=== PATIENT | male | born 1985 | race Hispanic/Latino ===

== ENCOUNTER 2019-05-20 11:43 | Inpatient (IN) | payer SELFPAY ==
[~2019-05-20] VITALS: Ht 165.1 cm; Wt 68.2 kg
[2019-05-20] MEDS ORDERED: IBUPROFEN 600 MG TAB PO STA (11:57)
[2019-05-20] MEDS ORDERED: AZITHROMYCIN 250 MG TAB PO ONE (12:00)
[2019-05-20] MEDS ORDERED: CEFTRIAXONE SOD 1 GM VIAL IM ONE (12:00)
[2019-05-20] MEDS ORDERED: OSELTAMIVIR PHOSPHATE 75 MG CAP PO ONE (12:00)
[2019-05-20 12:48] LABS: STREPTOCOCCUS GRP A ANTIGEN POSITIVE (NEGATIVE)
[2019-05-20 12:54] LABS: INFLUENZAE A&B ANTIGEN (RAPID) NEGATIVE (NEGATIVE)
--- NOTE | 2019-05-20 13:17 | Diagnostic Imaging Report ---
EXAMINATION: CHEST 2 VIEWS INDICATION: Chest pain, shortness of breath COMPARISON: None FINDINGS: LINES/TUBES:None LUNGS:The lungs are well-inflated. There is a 6.5 x 5.5 cm consolidation at the lateral left midlung zone with internal lucent component. PLEURA:No pleural effusion or pneumothorax. MEDIASTINUM:The cardiomediastinal silhouette appears normal in size and shape. BONES/SOFT TISSUES:No acute osseous injury. ABDOMEN:No free air under the diaphragm. IMPRESSION: Left midlung zone 6.5 x 5.5 cm consolidation with internal lucency for which the differential includes pneumonia or a cavitary mass lesion. RECOMMENDATION: Chest CT for further evaluation. Signed by: Ramu Moseley MD on 05/20/2019 1:13 PM
[2019-05-20] MEDS ORDERED: MORPHINE SULFATE INJ 4 MG/ML INJ 1ML IV STA (13:54)
[2019-05-20] MEDS ORDERED: IPRATROPIUM BROMIDE 0.02% 2.5 ML NEB NEB STA (13:54)
[2019-05-20] MEDS ORDERED: SODIUM CHLORIDE 0.9% 1000ML 1,000 ML IV STA (13:54)
[2019-05-20] MEDS ORDERED: SODIUM CHLORIDE 0.9% 100 ML IV STA (13:54)
[2019-05-20] MEDS ORDERED: ACETAMINOPHEN 325 MG TAB PO STA (13:54)
[2019-05-20] MEDS ORDERED: ALBUTEROL SULF 0.083% NEB SOLN 3 ML NEB NEB STA (13:54)
[2019-05-20] MEDS ORDERED: ONDANSETRON HCL INJ 2MG/ML 2ML 2 MG/ML VIAL IV STA (13:54)
[2019-05-20] MEDS ORDERED: PIPER-TAZ 3.375 GM 50 ML IV ONE (14:15)
[2019-05-20] MEDS ORDERED: LEVOFLOXACIN 750MG/D5W 150ML IV SCH (14:15)
[2019-05-20] MEDS ORDERED: LEVOFLOXACIN 750MG/D5W 150ML 150 ML IV ONE (14:45)
--- OUTSIDE RECORDS SUMMARY | 2019-05-20 14:59 | XMS REPORT ---
[facility] Address Unknown Phone Unavailable Care Team Providers Care Ged Teacher Name Role Phone CHAMP COULTER Unavailable Unavailable Problems This patient has no known problems. Allergies, Adverse Reactions, Alerts This patient has no known allergies or adverse reactions. Medications This patient has no known medications. Results Test Description Test Time Test Comments Text Results Atomic Results Result Comments CHEST 2 VIEWS 2019-05-20 13:11:00 [place] [id number] Patient Name: VANDA ALTAMIRANO MR #: [id number] : 1985 Age/Sex: 34/M Req #: [id number] Adm Physician: Ordered by: CHAMP COULTER MD, MD Report #: [id number] Location: ER Room/Bed: Procedure: [id number] DX/CHEST 2 VIEWS Exam Date: Exam Time: REPORT STATUS: Signed EXAMINATION: CHEST 2 VIEWS INDICATION: Chest pain, shortness of breath COMPARISON: None FINDINGS: LINES/TUBES:None LUNGS:The lungs are well-inflated. There is a 6.5 x 5.5 cm consolidation at the lateral left midlung zone with internal lucent component. PLEURA:No pleural effusion or pneumothorax. MEDIASTINUM:The cardiomediastinal silhouette appears normal in size and shape. BONES/SOFT TISSUES:No acute osseous injury. ABDOMEN:No free air under the diaphragm. IMPRESSION: Left midlung zone 6.5 x 5.5 cm consolidation with internal lucency for which the differential includes pneumonia or a cavitary mass lesion. RECOMMENDATION: Chest CT for further evaluation. Signed by: Indy Moseley MD on 05/20/2019 1:13 PM Dictated By: INDY MOSELEY MD 131 Transcribed By: PATRICK on 05/20/191312 COPY TO: CHAMP COULTER
[2019-05-20 15:51] LABS: BASOPHILS # (AUTO) 0.1 (0.0-0.1); BASOPHILS % 0.5 % (0.0-1.0); EOSINOPHILS # (AUTO) 0.1 (0.0-0.4); EOSINOPHILS % 0.3 % (0.0-6.0); HEMOGLOBIN 14.6 g/dL (14.0-18.0); LYMPHOCYTES % 5.7 % (18.0-39.1); MEAN CORPUSCULAR HEMOGLOBIN 30.2 pg (28-32); MEAN CORPUSCULAR HGB CONC 34.8 g/dL (31-35); MEAN CORPUSCULAR VOLUME 86.8 fL (81-99); MONOCYTES # (AUTO) 1.6 (0.2-0.8); MONOCYTES % 8.6 % (4.4-11.3); NEUTROPHILS # (AUTO) 15.2 (2.1-6.9); NEUTROPHILS % 84.5 % (38.7-80.0); PLATELET COUNT 116 x10e3/uL (140-360); RED BLOOD COUNT 4.84 x10e6/uL (4.3-5.7); RED CELL DISTRIBUTION WIDTH 13.3 % (11.7-14.4)
[2019-05-20 16:02] LABS: BILIRUBIN,URINE NEGATIVE (NEGATIVE); CLARITY,URINE SL CLOUDY (CLEAR); COLOR,URINE YELLOW (YELLOW); KETONES,URINE TRACE (NEGATIVE); LEUKOCYTE ESTERASE ,URINE NEGATIVE (NEGATIVE); NITRITE,URINE NEGATIVE (NEGATIVE); URINE UROBILINOGEN 1 mg/dL (0.2 - 1)
[2019-05-20 16:03] LABS: PROTEIN,URINE DIPSTICK 2+ (NEGATIVE)
[2019-05-20 16:09] LABS: ALANINE AMINOTRANSFERASE 16 IU/L (0-55); ALBUMIN 3.3 g/dL (3.5-5.0); ALBUMIN/GLOBULIN RATIO 0.7 (0.8-2.0); ALKALINE PHOSPHATASE 58 IU/L (40-150); BLOOD UREA NITROGEN 11 mg/dL (7-26); BUN/CREATININE RATIO 11 (6-25); CARBON DIOXIDE 24 mmol/L (22-29); CHLORIDE 91 mmol/L (98-107); CREATININE, SERUM 1.04 mg/dL (0.72-1.25); EST GLOMERULAR FILTRATION RATE > 60 ML/MIN (60-); GLUCOSE 117 mg/dL (74-118); MAGNESIUM 1.6 MG/DL (1.3-2.1); SODIUM 127 mmol/L (136-145)
[2019-05-20 16:10] LABS: CREATINE KINASE 46 IU/L (30-200)
[2019-05-20 16:13] LABS: BACTERIA,URINE MODERATE /HPF; RBC,URINE 0-5 /HPF (0-5)
[2019-05-20 17:08] LABS: LYMPHOCYTES % (MANUAL) 2 % (19-48); MONOCYTES % (MANUAL) 10 % (3.4-9.0); NEUTROPHILS % (MANUAL) 86 % (40-74); PLATELET ESTIMATE ADEQUATE; PLATELET MORPHOLOGY COMMENT NORMAL; RBC MORPHOLOGY COMMENT NORMAL
--- NOTE | 2019-05-20 17:43 | Diagnostic Imaging Report ---
CT chest with enhancement CPT code: 55996 INDICATION: Fever, cough TECHNIQUE: 5 mm collimation axial images obtained from the thoracic inlet to the level of the diaphragm following uneventful administration of 100 cc of low osmolar, nonionic intravenous contrast. RADIATION DOSE: Total DLP: 573.92 mGy*cm Estimated effective dose: (DLP x 0.015 x size factor) mSv CTDIvol has been reviewed. It is below the limits set by the Radiation Protocol Committee (RPC). Dose reduction techniques used: Automated exposure control, adjustment of the mAs and/or kVp according to patient size, standardized low-dose protocol, and/or iterative reconstruction technique. Comparison: Chest x-ray 1301 hours. CHEST FINDINGS: Lymph nodes: No enlarged axillary or supraclavicular lymph nodes. There are multiple prominent mediastinal lymph nodes, particularly in the AP window and the subcarinal spaces. Left hilar lymph nodes are prominent. Thyroid: Visualized portions are normal. Mediastinum: No pericardial effusion. Heart and great vessels enhance normally without filling defects. The esophagus is normal. Lungs: Right Lung: Subtle band of subsegmental atelectasis in the posterior upper lobe. Left Lung: Large area of dense infiltrate in the upper lobe with several areas of central cavitation, the largest measuring 1.8 cm. There are patchy areas of groundglass attenuation in the superior segment of the lower lobe and in the lingula. Airways: Clear. Pleura: Trace posterior left pleural effusion. No pneumothorax. ABDOMEN: There are coarse calcifications in the spleen. No soft tissue mass or lymphadenopathy in the visualized upper abdomen. Bones: No focal osseous lesions. IMPRESSION: 1. Large infiltrate in the left upper lobe with cavitations and multiple infiltrates in the lingula and lower lobe. Findings are suggestive of cavitary pneumonia. Recommend close interval follow-up to document interval change/resolution. 2. Enlarged mediastinal and left hilar lymph nodes are likely reactive. Signed by: Dr. Obed Nelson MD on 05/20/2019 5:40 PM
[2019-05-20] MEDS ORDERED: POTASSIUM CHLORIDE 20 MEQ TAB CR PO ONE (17:45)
--- NOTE | 2019-05-20 18:00 | NUR ---
Per Dr. Dawson place patient on airborne precautions to r/o TB due to CT chest read: Large area of dense infiltrate in the upper lobe with several areas of central cavitation.
[2019-05-20] MEDS: SODIUM CHLORIDE 0.9% 1000ML 1,000 ML IV SCH ×2 (18:12→22:01)
--- NOTE | 2019-05-20 18:45 | NUR ---
pt moved to room 1 per clay pollack
[2019-05-20] MEDS ORDERED: IOPAMIDOL 370 MG/ML 200 ML INFUS..BTL INJ ONE (19:20)
[2019-05-20] MEDS ORDERED: SODIUM CHLORIDE 0.9% 50ML 50 ML ONE (19:20)
[2019-05-20] MEDS: PIPER-TAZ 3.375 GM 50 ML IV SCH (21:22)
[2019-05-20 22:30] VITALS: BP 130/78
--- NOTE | 2019-05-20 22:30 | NUR ---
Patient received via stretcher from ER accompanied by friend. Patient is AAO x 3. Patient had no complaints of pain. Respirations even and non-labored. Admission history obtained. Initial physical assessment performed. Patient oriented to room, call light and plan of care. Airborne and fall precautions in place. IVF infusing at 125 cc/hr. Patient instructed to call for assistance when needed. Call light within reach.
[2019-05-20 22:35] VITALS: BP 130/78
[2019-05-20] MEDS: ALBUTEROL SULF 0.083% NEB SOLN 3 ML NEB NEB SCH (23:30)
--- NOTE | 2019-05-20 23:45 | NUR ---
Sputum culture sent to lab for analysis. Blood specimen sent for analysis of cardiac enzymes.
[2019-05-21] VITALS (8 sets, daily range): BP systolic 126–144; BP diastolic 64–88
[2019-05-21] MEDS: ACETAMINOPHEN 325 MG TAB PO PRN ×3 (00:09→17:13)
[2019-05-21 01:22] LABS: CREATINE KINASE 37 IU/L (30-200)
[2019-05-21] MEDS: PIPER-TAZ 3.375 GM 50 ML IV SCH ×4 (02:15→21:31)
[2019-05-21] MEDS: ALBUTEROL SULF 0.083% NEB SOLN 3 ML NEB NEB SCH ×6 (04:00→23:15)
[2019-05-21] MEDS: IPRATROPIUM BROMIDE 0.02% 2.5 ML NEB NEB SCH ×4 (04:00→18:50)
--- NOTE | 2019-05-21 05:31 | Diagnostic Imaging Report ---
EXAMINATION: CHEST SINGLE (PORTABLE) INDICATION: Pneumonia. COMPARISON: Chest radiograph and CT Chest 05/20/2019. FINDINGS: TUBES and LINES: None. LUNGS: Low lung volumes. Persistent cavitary consolidation in the left midlung. Mild patchy right lower lung opacity. PLEURA: No pleural effusion or pneumothorax. HEART AND MEDIASTINUM: The cardiomediastinal silhouette is unchanged. BONES AND SOFT TISSUES: No acute osseous abnormality. UPPER ABDOMEN: No free air under the diaphragm. IMPRESSION: Persistent cavitary consolidation in the left lung, consistent with pneumonia as seen on CT chest. Mild patchy right lower lung opacity may represent developing pneumonia or atelectasis. Signed by: Dr. Davis Mari MD on 05/21/2019 5:27 AM
[2019-05-21] MEDS: POTASSIUM CHLORIDE 20 MEQ TAB CR PO SCH ×2 (05:47→17:12)
[2019-05-21] MEDS: SODIUM CHLORIDE 0.9% 1000ML 1,000 ML IV SCH ×3 (05:48→22:01)
--- NOTE | 2019-05-21 06:10 | NUR ---
Dr. Sandi Rai paged for "Routine Consult" of patient. Reason: Left PNA, Cavitary. Awaiting call back.
--- NOTE | 2019-05-21 06:32 | NUR ---
Dr. Cristine Corey paged for "Routine Consult" of patient. Reason: Cavitary Pneumonia. Awaiting call back.
[2019-05-21 06:38] LABS: BASOPHILS # (AUTO) 0.1 (0.0-0.1); BASOPHILS % 0.4 % (0.0-1.0); EOSINOPHILS % 0.2 % (0.0-6.0); HEMATOCRIT 36.7 % (38.2-49.6); HEMOGLOBIN 12.8 g/dL (14.0-18.0); LYMPHOCYTES # (AUTO) 0.4 (1.0-3.2); LYMPHOCYTES % 3.3 % (18.0-39.1); MEAN CORPUSCULAR HEMOGLOBIN 30.1 pg (28-32); MEAN CORPUSCULAR HGB CONC 34.9 g/dL (31-35); MEAN CORPUSCULAR VOLUME 86.4 fL (81-99); MONOCYTES # (AUTO) 1.5 (0.2-0.8); MONOCYTES % 11.1 % (4.4-11.3); NEUTROPHILS # (AUTO) 11.4 (2.1-6.9); NEUTROPHILS % 84.2 % (38.7-80.0); PLATELET COUNT 120 x10e3/uL (140-360); RED BLOOD COUNT 4.25 x10e6/uL (4.3-5.7); RED CELL DISTRIBUTION WIDTH 13.6 % (11.7-14.4)
[2019-05-21 06:56] LABS: ALANINE AMINOTRANSFERASE 15 IU/L (0-55); ALBUMIN 2.5 g/dL (3.5-5.0); ALBUMIN/GLOBULIN RATIO 0.6 (0.8-2.0); ALKALINE PHOSPHATASE 62 IU/L (40-150); ANION GAP 13.2 mmol/L (8-16); BLOOD UREA NITROGEN 7 mg/dL (7-26); BUN/CREATININE RATIO 9 (6-25); CARBON DIOXIDE 24 mmol/L (22-29); CHLORIDE 99 mmol/L (98-107); CREATININE, SERUM 0.79 mg/dL (0.72-1.25); EST GLOMERULAR FILTRATION RATE > 60 ML/MIN (60-); GLUCOSE 114 mg/dL (74-118); POTASSIUM 3.2 mmol/L (3.5-5.1); SODIUM 133 mmol/L (136-145)
[2019-05-21 07:07] LABS: CREATINE KINASE 33 IU/L (30-200)
[2019-05-21 07:34] LABS: BAND NEUTROPHILS % (MANUAL) 1 %; EOSINOPHILS % (MANUAL) 1 % (0-7); MONOCYTES % (MANUAL) 12 % (3.4-9.0); NUCLEATED RED BLOOD CELLS 1
[2019-05-21 07:35] LABS: LYMPHOCYTES % (MANUAL) 7 % (19-48); NEUTROPHILS % (MANUAL) 78 % (40-74)
[2019-05-21 07:38] LABS: PLATELET ESTIMATE SLIGHTLY DECREASED
[2019-05-21 07:39] LABS: RBC MORPHOLOGY COMMENT NORMAL
[2019-05-21 07:49] LABS: PLATELET MORPHOLOGY COMMENT MODERATE LARGE
[2019-05-21] MEDS: LEVOFLOXACIN 750MG/D5W 150ML 150 ML IV SCH (08:29)
--- NOTE | 2019-05-21 11:27 | NUR ---
PATIENT IS AWAKE AND IN STABLE CONDITION WITH NO S/S OF RESPIRATORY DISTRESS. NO PAIN VOICED. IV FLUIDS INFUSING. TELEMETRY APPLIED. CALL LIGHT IS WITHIN REACH, PATIENT INSTRUCTED TO CALL FOR ASSISTANCE NEEDED.
--- NOTE | 2019-05-21 17:38 | NUR ---
CALL PLACED OUT TO DR. MCDERMOTT REGARDING PATIENT'S TEMPERATURE OF 101.9- AWAITING CALLBACK. PO TYLENOL ADMINISTERED TO PATIENT.
--- NOTE | 2019-05-21 17:43 | NUR ---
RECEIVED CALLBACK FROM DR. MCDERMOTT- DR. MCDERMOTT INFORMED ON PATIENT'S TEMPERATURE OF 101.9 ORDER TO CONTINUE ZOSYN 3.375GM Q6H. NO ORDER FOR BLOOD CULTURES AT THIS TIME; PATIENT'S LAST BLOOD CULTURES WERE OBTAINED ON 05/20/19.
[2019-05-21 18:28] LABS: HIV 1&2 AB SCREEN NON-REACTIVE (NONREACTIVE)
--- NOTE | 2019-05-21 19:19 | NUR ---
PATIENT IS IN STABLE CONDITION WITH NO S/S OF RESPIRATORY DISTRESS-NO PAIN VOICED. CALL LIGHT IS WITHIN REACH, PATIENT INSTRUCTED TO CALL FOR ASSISTANCE NEEDED. FRIEND PRESENT IN ROOM. REPORT GIVEN TO ONCOMING NURSE.
[2019-05-22] VITALS (7 sets, daily range): BP systolic 118–153; BP diastolic 62–94
[2019-05-22] MEDS: ACETAMINOPHEN 325 MG TAB PO PRN (00:41)
[2019-05-22] MEDS: PIPER-TAZ 3.375 GM 50 ML IV SCH ×4 (02:39→20:00)
[2019-05-22] MEDS: ALBUTEROL SULF 0.083% NEB SOLN 3 ML NEB NEB SCH ×6 (03:20→22:45)
[2019-05-22] MEDS: IPRATROPIUM BROMIDE 0.02% 2.5 ML NEB NEB SCH ×4 (03:20→18:55)
--- NOTE | 2019-05-22 05:35 | Consultation ---
DATE OF CONSULTATION: Pulmonary Consultation REASON FOR CONSULT: Abnormal CT chest, shortness of breath. HISTORY OF PRESENT ILLNESS: Mr. Delarosa is a 34-year-old male, who presented to the emergency room with complaints of shortness of breath. He is originally from [place], but he moved to [facility] when he was 16 years old and since then he has never gone back. He reported that he was having chest discomfort and shortness of breath, where we decided to come to the emergency room. He felt that he is having flu-like symptoms. His shortness of breath and chest pain was episodic, it was relieved by rest and it was associated with cough. In the emergency room, the patient underwent a CT of the chest, which showed evidence of large infiltrate and cavitation in the lingula in the lower lobe on the left side. He denies any nausea, vomiting. 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 REVIEW OF SYSTEMS: GENERAL: Denies any fever, chills. HEAD: Denies any head trauma. ENT: Denies any earache. CVS: Denies any chest pain. RESPIRATORY: Shortness of breath. The rest of the review of systems are negative except as in HPI. PAST MEDICAL HISTORY: None. PAST SURGICAL HISTORY: None. FAMILY AND SOCIAL HISTORY: He smokes. He has been a smoker for 20+ years. Denies any alcohol use. PHYSICAL EXAMINATION: VITAL SIGNS: Temperature 99.2, pulse of 95, blood pressure 127/64, respiratory rate of 18, and T-max of 101.2. HEENT: Head atraumatic, normocephalic. NECK: Supple. CHEST: Crackles on the bases. HEART: S1-S2 audible. ABDOMEN: Soft, nontender. EXTREMITIES: No pedal edema. NEUROLOGIC: Awake and alert. No focal neurologic deficits. LABORATORY DATA: [place] [address] and down to 13,000 since the antibiotic has been started. Hemoglobin 14.6, platelets 116, 120 now. One set of sputum culture sent. A CT of the chest, I reviewed the images of the lingula and left lower lobe to his dense area of consolidation and there is possibly a cavity. However, it appears that it is a dense consolidation with some clearing. ASSESSMENT: Mr. Delarosa is a 34-year-old male, who presented to the emergency room with cough and chest pain with occasional shortness of breath. He is a smoker. CT chest finding reviewed. Current problems: 1. Likely cavitary pneumonia, possibility of tuberculosis or fungal infection as there. 2. Smoker. PLAN: 1. Agree with IV antibiotics. ID consultation has been done. White cell count is improving with IV Zosyn. Continue nebulizer treatment. 2. Possibly, we will need a bronchoscopy if unable to give enough sample. We will discuss with him in a.m. Thank you for this consult. MD JANETTE Chapin/ANNA /[id number]
[2019-05-22] MEDS: POTASSIUM CHLORIDE 20 MEQ TAB CR PO SCH ×2 (05:51→17:16)
[2019-05-22] MEDS: SODIUM CHLORIDE 0.9% 1000ML 1,000 ML IV SCH ×2 (06:01→16:08)
[2019-05-22 06:48] LABS: BASOPHILS # (AUTO) 0.1 (0.0-0.1); BASOPHILS % 0.4 % (0.0-1.0); EOSINOPHILS % 0.3 % (0.0-6.0); HEMATOCRIT 35.7 % (38.2-49.6); HEMOGLOBIN 12.3 g/dL (14.0-18.0); LYMPHOCYTES # (AUTO) 0.9 (1.0-3.2); LYMPHOCYTES % 8.1 % (18.0-39.1); MEAN CORPUSCULAR HEMOGLOBIN 29.8 pg (28-32); MEAN CORPUSCULAR HGB CONC 34.5 g/dL (31-35); MEAN CORPUSCULAR VOLUME 86.4 fL (81-99); MONOCYTES # (AUTO) 1.6 (0.2-0.8); MONOCYTES % 14.6 % (4.4-11.3); NEUTROPHILS # (AUTO) 8.4 (2.1-6.9); PLATELET COUNT 135 x10e3/uL (140-360); RED BLOOD COUNT 4.13 x10e6/uL (4.3-5.7)
[2019-05-22 06:58] LABS: ALANINE AMINOTRANSFERASE 60 IU/L (0-55); ALBUMIN 2.3 g/dL (3.5-5.0); ALBUMIN/GLOBULIN RATIO 0.5 (0.8-2.0); ALKALINE PHOSPHATASE 89 IU/L (40-150); ANION GAP 12.1 mmol/L (8-16); BLOOD UREA NITROGEN < 5 mg/dL (7-26); CARBON DIOXIDE 25 mmol/L (22-29); CHLORIDE 99 mmol/L (98-107); CREATININE, SERUM 0.76 mg/dL (0.72-1.25); EST GLOMERULAR FILTRATION RATE > 60 ML/MIN (60-); GLUCOSE 103 mg/dL (74-118); MAGNESIUM 1.7 MG/DL (1.3-2.1); POTASSIUM 3.1 mmol/L (3.5-5.1); SODIUM 133 mmol/L (136-145)
[2019-05-22 06:59] LABS: BUN/CREATININE RATIO 7 (6-25)
[2019-05-22] MEDS: LEVOFLOXACIN 750MG/D5W 150ML 150 ML IV SCH (08:05)
[2019-05-22 08:33] LABS: PLATELET ESTIMATE MODERATELY DECREASED; PLATELET MORPHOLOGY COMMENT FEW LARGE; RBC MORPHOLOGY COMMENT NORMAL
--- NOTE | 2019-05-22 09:08 | NUR ---
INFORMED DR. MCMILLAN OF PATIENT'S POTASSIUM LEVEL OF 3.1- RECEIVED NEW ORDERS TO GIVE PO POTASSIUM 40MEQ NOW AND AGAIN IN 12 HOURS.
[2019-05-22] MEDS ORDERED: POTASSIUM CHLORIDE 20 MEQ TAB CR PO ONE ×2 (09:45→21:00)
--- NOTE | 2019-05-22 11:07 | NUR ---
GAVE PACKET OF INFORMATION WITH COMMUNITY [employer] FOR ASSISTANCE WITH LOW TO NO INCOME TO PATIENT. RESOURCES THAT PATIENT MAY BE ABLE TO FOLLOW UP UPON DISCHARGE. PT EDUCATED ON EACH RESOURCE AND UNDERSTANDING HOW TO FOLLOW UP TO SEE IF QUALIFIED FOR EACH RESOURCE.
--- NOTE | 2019-05-22 19:11 | NUR ---
PATIENT IS IN STABLE CONDITION WITH NO S/S OF RESPIRATORY DISTRESS-NO PAIN VOICED. IV FLUIDS INFUSING. PATIENT WILL BE NPO AFTER MIDNIGHT AND IS AWARE. CALL LIGHT IS WITHIN REACH, PATIENT INSTRUCTED TO CALL FOR ASSISTANCE NEEDED. REPORT GIVEN TO ONCOMING NURSE.
--- NOTE | 2019-05-22 20:17 | NUR ---
RECEIVE DPT SITTING ON THE SIDE OF THE BED .NO ACUTE DISTRESS NOTED .CALL LIGHT WITH IN REACH .FAMILY AT THE BEDSIDE .CONTINUE TO MONITOR
[2019-05-23] VITALS (7 sets, daily range): BP systolic 125–136; BP diastolic 67–80
[2019-05-23] MEDS: SODIUM CHLORIDE 0.9% 1000ML 1,000 ML IV SCH ×4 (00:36→19:58)
[2019-05-23] MEDS: PIPER-TAZ 3.375 GM 50 ML IV SCH ×4 (02:00→19:58)
[2019-05-23] MEDS: IPRATROPIUM BROMIDE 0.02% 2.5 ML NEB NEB SCH ×4 (02:55→19:40)
[2019-05-23] MEDS: ALBUTEROL SULF 0.083% NEB SOLN 3 ML NEB NEB SCH ×6 (02:55→23:00)
[2019-05-23] MEDS: POTASSIUM CHLORIDE 20 MEQ TAB CR PO SCH ×2 (06:00→17:54)
[2019-05-23 06:13] LABS: BASOPHILS # (AUTO) 0.1 (0.0-0.1); BASOPHILS % 0.4 % (0.0-1.0); EOSINOPHILS % 0.2 % (0.0-6.0); HEMATOCRIT 36.3 % (38.2-49.6); HEMOGLOBIN 12.3 g/dL (14.0-18.0); LYMPHOCYTES # (AUTO) 0.9 (1.0-3.2); LYMPHOCYTES % 7.9 % (18.0-39.1); MEAN CORPUSCULAR HEMOGLOBIN 29.9 pg (28-32); MEAN CORPUSCULAR HGB CONC 33.9 g/dL (31-35); MEAN CORPUSCULAR VOLUME 88.1 fL (81-99); MONOCYTES # (AUTO) 1.6 (0.2-0.8); MONOCYTES % 13.4 % (4.4-11.3); NEUTROPHILS # (AUTO) 8.8 (2.1-6.9); NEUTROPHILS % 75.4 % (38.7-80.0); PLATELET COUNT 192 x10e3/uL (140-360); RED BLOOD COUNT 4.12 x10e6/uL (4.3-5.7); RED CELL DISTRIBUTION WIDTH 14.6 % (11.7-14.4)
[2019-05-23 06:31] LABS: ALANINE AMINOTRANSFERASE 123 IU/L (0-55); ALBUMIN 2.4 g/dL (3.5-5.0); ALBUMIN/GLOBULIN RATIO 0.5 (0.8-2.0); ALKALINE PHOSPHATASE 143 IU/L (40-150); ANION GAP 12.9 mmol/L (8-16); BLOOD UREA NITROGEN < 5 mg/dL (7-26); CALCIUM 9.3 mg/dL (8.4-10.2); CARBON DIOXIDE 23 mmol/L (22-29); CHLORIDE 102 mmol/L (98-107); CREATININE, SERUM 0.74 mg/dL (0.72-1.25); EST GLOMERULAR FILTRATION RATE > 60 ML/MIN (60-); GLUCOSE 105 mg/dL (74-118); POTASSIUM 3.9 mmol/L (3.5-5.1); SODIUM 134 mmol/L (136-145)
[2019-05-23 06:32] LABS: BUN/CREATININE RATIO 7 (6-25)
--- NOTE | 2019-05-23 07:24 | NUR ---
PT IS NPO FOR LUNG BIOPSY AND DENIES PAIN .BEDSIDE GIVEN TO THE ONCOMING NURSE
[2019-05-23] MEDS: LEVOFLOXACIN 750MG/D5W 150ML 150 ML IV SCH (09:00)
--- NOTE | 2019-05-23 10:37 | NUR ---
PT TRANSPORTED TO OR FOR BRONC VIA BED
[2019-05-23] MEDS ORDERED: LIDOCAINE HCL 4% 50 ML BTL ONE (10:44)
[2019-05-23 10:57] LABS: BAND NEUTROPHILS % (MANUAL) 1 %; LYMPHOCYTES % (MANUAL) 12 % (19-48); MONOCYTES % (MANUAL) 14 % (3.4-9.0); NEUTROPHILS % (MANUAL) 73 % (40-74)
[2019-05-23 10:59] LABS: ANISOCYTOSIS SLIGHT; MICROCYTOSIS SLIGHT; PLATELET ESTIMATE ADEQUATE
[2019-05-23 11:01] LABS: PLATELET MORPHOLOGY COMMENT FEW LARGE; RBC MORPHOLOGY COMMENT ABNORMAL
--- NOTE | 2019-05-23 13:06 | Diagnostic Imaging Report ---
EXAMINATION: CHEST SINGLE (PORTABLE) INDICATION: Pneumonia COMPARISON: Chest radiograph of 05/21/2019 FINDINGS: LINES/TUBES:EKG leads overlie the chest. LUNGS:The lungs are moderately inflated. Unchanged consolidation with cavitary component at the right upper lobe. Patchy bibasilar opacities. PLEURA:No pleural effusion or pneumothorax. MEDIASTINUM:The cardiomediastinal silhouette appears unchanged in size and shape. BONES/SOFT TISSUES:No acute osseous injury. ABDOMEN:No free air under the diaphragm. IMPRESSION: Unchanged left upper lobe consolidation with cavitary component consistent with pneumonia. Patchy bibasilar opacities, likely subsegmental atelectasis. Signed by: Ramu Moseley MD on 05/23/2019 1:03 PM
--- NOTE | 2019-05-23 17:55 | NUR ---
PT UP IN BED NO DISTRESS NTOED,DENIES PAIN.
--- NOTE | 2019-05-23 18:08 | Operative Report ---
DATE OF PROCEDURE: SURGEON: Aleena Alvarez MD PREPROCEDURE DIAGNOSIS: Cavitary pneumonia. POSTPROCEDURE DIAGNOSES: Left upper lobe lingular cavity, no mucopurulent since secretion, thin tenacious secretion. PENS AND PENCILS REPAIRER: None. ANESTHESIA: General. PROCEDURE IN DETAIL: Bronchoscope was advanced through the LMA. Both lungs were examined to the segmental level. Left upper lobe and lingula were showing thick clear secretion. Right upper lobe, lower lobe, and middle lobe showed thin secretions. No mucoid purulence. BAL was done from the lingula. Transbronchial lung biopsy was done from lingula and sent for pathology. Samples were sent for Gram stain, culture, fungus, and AFB. MD JANETTE Chapin/MODL /[id number]
[2019-05-23] MEDS ORDERED: SEVOFLURANE INHAL SOLN 250 ML PEN BTL ONE (18:14)
[2019-05-23] MEDS ORDERED: EPINEPHRINE HCL 1:1000 1ML 1 MG/ML AMP ONE (18:14)
[2019-05-23] MEDS ORDERED: PROPOFOL IV EMULSION 10 MG/ML 20 ML VIAL ONE (18:14)
[2019-05-23] MEDS ORDERED: ONDANSETRON HCL INJ 2MG/ML 2ML 2 MG/ML VIAL ONE (18:14)
[2019-05-23] MEDS ORDERED: LIDOCAINE HCL 2% LOCAL INJ 5 ML SDV VIAL INJ ONE (18:14)
[2019-05-23] MEDS ORDERED: MIDAZOLAM HCL 2 MG/2 ML VIAL ONE (18:26)
[2019-05-23] MEDS ORDERED: FENTANYL CITRATE/PF 100MCG/2 ML INJ ONE (18:26)
--- NOTE | 2019-05-23 19:13 | NUR ---
Received bedside report from day nurse. Patient resting in bed, no s/s of distress or c/o pain at this time. All safety measures in place. Will continue to monitor.
[2019-05-23] MEDS: ACETAMINOPHEN 325 MG TAB PO PRN (19:58)
[2019-05-24] VITALS (8 sets, daily range): BP systolic 116–138; BP diastolic 57–75
[2019-05-24] MEDS: IPRATROPIUM BROMIDE 0.02% 2.5 ML NEB NEB SCH ×4 (01:00→19:00)
[2019-05-24] MEDS: PIPER-TAZ 3.375 GM 50 ML IV SCH ×4 (02:30→20:01)
[2019-05-24] MEDS: ALBUTEROL SULF 0.083% NEB SOLN 3 ML NEB NEB SCH ×6 (03:00→23:00)
[2019-05-24] MEDS: ACETAMINOPHEN 325 MG TAB PO PRN ×2 (03:51→20:02)
[2019-05-24] MEDS: POTASSIUM CHLORIDE 20 MEQ TAB CR PO SCH ×2 (05:58→18:00)
[2019-05-24] MEDS: SODIUM CHLORIDE 0.9% 1000ML 1,000 ML IV SCH (05:58)
--- NOTE | 2019-05-24 06:15 | NUR ---
Per Dr. Mccartney, stop IV fluids.
--- NOTE | 2019-05-24 06:58 | NUR ---
Gave bedside report to day nurse. Patient resting in bed, no s/s of distress or c/o pain at this time. All safety measures in place. Family at bedside.
[2019-05-24 06:59] LABS: BASOPHILS # (AUTO) 0.1 (0.0-0.1); BASOPHILS % 0.6 % (0.0-1.0); EOSINOPHILS # (AUTO) 0.1 (0.0-0.4); EOSINOPHILS % 0.4 % (0.0-6.0); HEMATOCRIT 35.8 % (38.2-49.6); LYMPHOCYTES # (AUTO) 1.4 (1.0-3.2); LYMPHOCYTES % 10.2 % (18.0-39.1); MEAN CORPUSCULAR HEMOGLOBIN 29.9 pg (28-32); MEAN CORPUSCULAR HGB CONC 33.5 g/dL (31-35); MEAN CORPUSCULAR VOLUME 89.3 fL (81-99); MONOCYTES # (AUTO) 1.4 (0.2-0.8); MONOCYTES % 10.2 % (4.4-11.3); NEUTROPHILS # (AUTO) 10.1 (2.1-6.9); NEUTROPHILS % 73.5 % (38.7-80.0); PLATELET COUNT 280 x10e3/uL (140-360); RED BLOOD COUNT 4.01 x10e6/uL (4.3-5.7); RED CELL DISTRIBUTION WIDTH 14.7 % (11.7-14.4)
[2019-05-24 07:27] LABS: ALANINE AMINOTRANSFERASE 91 IU/L (0-55); ALBUMIN 2.1 g/dL (3.5-5.0); ALBUMIN/GLOBULIN RATIO 0.5 (0.8-2.0); ALKALINE PHOSPHATASE 161 IU/L (40-150); ANION GAP 12.9 mmol/L (8-16); BLOOD UREA NITROGEN < 5 mg/dL (7-26); CALCIUM 9.3 mg/dL (8.4-10.2); CARBON DIOXIDE 24 mmol/L (22-29); CHLORIDE 101 mmol/L (98-107); CREATININE, SERUM 0.69 mg/dL (0.72-1.25); EST GLOMERULAR FILTRATION RATE > 60 ML/MIN (60-); GLUCOSE 102 mg/dL (74-118); POTASSIUM 3.9 mmol/L (3.5-5.1); SODIUM 134 mmol/L (136-145)
--- NOTE | 2019-05-24 07:30 | NUR ---
WA T IN BED SLEPING,DENIE PAIN,NON PRODUCTIVE COUGH
[2019-05-24 07:37] LABS: BUN/CREATININE RATIO 7 (6-25)
[2019-05-24] MEDS: LEVOFLOXACIN 750MG/D5W 150ML 150 ML IV SCH (09:00)
--- NOTE | 2019-05-24 18:59 | NUR ---
NO CHANGE IN STATUS,DENIES PAIN
--- NOTE | 2019-05-24 19:29 | NUR ---
Received bedside report from day nurse. Patient resting in bed, alert and oriented, no s/s of distress or c/o pain at this time. All safety measures in place. Family at bedside. Will continue to monitor.
[2019-05-25] VITALS (8 sets, daily range): BP systolic 121–131; BP diastolic 57–70
[2019-05-25] MEDS: IPRATROPIUM BROMIDE 0.02% 2.5 ML NEB NEB SCH ×4 (01:00→19:35)
[2019-05-25] MEDS: PIPER-TAZ 3.375 GM 50 ML IV SCH ×4 (01:13→20:00)
[2019-05-25] MEDS: ALBUTEROL SULF 0.083% NEB SOLN 3 ML NEB NEB SCH ×6 (03:00→23:02)
[2019-05-25] MEDS: POTASSIUM CHLORIDE 20 MEQ TAB CR PO SCH ×2 (06:11→17:07)
[2019-05-25] MEDS: LEVOFLOXACIN 750MG/D5W 150ML 150 ML IV SCH (09:00)
--- NOTE | 2019-05-25 14:50 | NUR ---
Visit made by the Spiritual Care Department Pastoral Visitor, Shyla Olivares. Pt unavailable at this time. ALTAGRACIA Panchal Spiritual Care Department O: [phone] Pager: [phone] ([phone] number calling from)
[2019-05-25] MEDS: ACETAMINOPHEN 325 MG TAB PO PRN (16:03)
--- NOTE | 2019-05-25 17:13 | NUR ---
PT RESTING NO DISTRESS NOTED
--- NOTE | 2019-05-25 20:00 | NUR ---
INITIAL ASSESSMENT COMPLETE, NO DISTRESS NOTED, RA, NO COUGHING, VS STABLE, CALL LIGHT IN REACH, IV INTACT, NO OTHER NEEDS
--- NOTE | 2019-05-25 23:30 | NUR ---
PT IN BED, NO DISTRESS NOTED, CALL LIGHT IN REACH, VS WNL
[2019-05-26] VITALS (8 sets, daily range): BP systolic 118–131; BP diastolic 58–70
[2019-05-26] MEDS: PIPER-TAZ 3.375 GM 50 ML IV SCH ×2 (02:00→07:53)
[2019-05-26] MEDS: ALBUTEROL SULF 0.083% NEB SOLN 3 ML NEB NEB SCH ×5 (02:30→23:00)
[2019-05-26] MEDS: IPRATROPIUM BROMIDE 0.02% 2.5 ML NEB NEB SCH ×4 (02:30→19:38)
[2019-05-26] MEDS: POTASSIUM CHLORIDE 20 MEQ TAB CR PO SCH ×2 (06:00→17:07)
[2019-05-26 06:49] LABS: BASOPHILS # (AUTO) 0.1 (0.0-0.1); BASOPHILS % 0.5 % (0.0-1.0); EOSINOPHILS # (AUTO) 0.1 (0.0-0.4); EOSINOPHILS % 0.3 % (0.0-6.0); HEMATOCRIT 36.7 % (38.2-49.6); HEMOGLOBIN 12.7 g/dL (14.0-18.0); LYMPHOCYTES % 9.4 % (18.0-39.1); MEAN CORPUSCULAR HGB CONC 34.6 g/dL (31-35); MEAN CORPUSCULAR VOLUME 86.8 fL (81-99); MONOCYTES # (AUTO) 1.2 (0.2-0.8); MONOCYTES % 5.9 % (4.4-11.3); NEUTROPHILS # (AUTO) 16.2 (2.1-6.9); NEUTROPHILS % 78.6 % (38.7-80.0); PLATELET COUNT 418 x10e3/uL (140-360); RED BLOOD COUNT 4.23 x10e6/uL (4.3-5.7); RED CELL DISTRIBUTION WIDTH 14.8 % (11.7-14.4)
--- NOTE | 2019-05-26 07:00 | NUR ---
PATIENT IS AWAKE AND IN STABLE CONDITION WITH NO S/S OF RESPIRATORY DISTRESS. NO PAIN VOICED. CALL LIGHT IS WITHIN REACH, PATIENT INSTRUCTED TO CALL FOR ASSISTANCE NEEDED.
[2019-05-26 07:09] LABS: ALANINE AMINOTRANSFERASE 67 IU/L (0-55); ALBUMIN 2.2 g/dL (3.5-5.0); ALBUMIN/GLOBULIN RATIO 0.4 (0.8-2.0); ALKALINE PHOSPHATASE 197 IU/L (40-150); BLOOD UREA NITROGEN 8 mg/dL (7-26); BUN/CREATININE RATIO 10 (6-25); CALCIUM 9.5 mg/dL (8.4-10.2); CARBON DIOXIDE 25 mmol/L (22-29); CHLORIDE 97 mmol/L (98-107); CREATININE, SERUM 0.79 mg/dL (0.72-1.25); EST GLOMERULAR FILTRATION RATE > 60 ML/MIN (60-); GLUCOSE 106 mg/dL (74-118); SODIUM 130 mmol/L (136-145)
[2019-05-26 07:27] LABS: BAND NEUTROPHILS % (MANUAL) 2 %; LYMPHOCYTES % (MANUAL) 12 % (19-48); MONOCYTES % (MANUAL) 9 % (3.4-9.0); NEUTROPHILS % (MANUAL) 73 % (40-74)
[2019-05-26 07:29] LABS: ANISOCYTOSIS SLIGHT; MICROCYTOSIS SLIGHT; PLATELET ESTIMATE SLIGHTLY INCREASED; PLATELET MORPHOLOGY COMMENT FEW LARGE; POIKILOCYTOSIS SLIGHT; RBC MORPHOLOGY COMMENT ABNORMAL; STOMATOCYTES SLIGHT
[2019-05-26] MEDS: ACETAMINOPHEN 325 MG TAB PO PRN (07:54)
[2019-05-26] MEDS: LEVOFLOXACIN 750MG/D5W 150ML 150 ML IV SCH (08:56)
--- NOTE | 2019-05-26 12:29 | Diagnostic Imaging Report ---
Chest, 2 views, 05/26/2019. History: TB. Comparison: 05/23/2019. Findings: The cardiac silhouette is within normal limits. Large left upper lobe cavitary lesion and patchy right upper lobe and left lower lobe opacities are present. There are no acute osseous or soft tissue abnormalities. Impression: Bilateral pneumonia, cavitary on the left, consistent with TB. Signed by: Cristino Segovia on 05/26/2019 12:26 PM
[2019-05-26] MEDS: CEFTRIAXONE SOD 1 GM/NS 50 ML 50 ML IV SCH (13:54)
--- NOTE | 2019-05-26 17:47 | NUR ---
Nutrition Screen Note RD Recommendation for Physician: -Continue regular diet Plan of Care: RD following, monitoring for tolerance and adequacy Nutrition reason for involvement: length of stay Primary Diagnose(s): fever, pleurisy, and pneumonia PMH: none Ht: 65 in Wt:161 lb BMI: 26.8 kg/m2 IBW: [address] Assessment: (05/26/19) Chart reviewed. Labs and meds reviewed. Pt is a 34 year old male admitted with fever, pleurisy, and pneumonia. Pt reports he has been eating about 50% of meals. Per documentation, pt has been consuming 50-100% of meals during admission except this morning in which pt consumed 25% of meal. No N/V/D/C reported and no chewing/swallowing issues at this time. Will continue to monitor. Current Diet: Regular Malnutrition Evaluation (05/26/19) The patient does not meet criteria for a specified degree of malnutrition at this time. Will re-evaluate at follow-up as appropriate. Diet Education Needs Assessment: Diet education not indicated. Nutrition Care Level: low Signed: Maribeth Triana, RD, LD
--- NOTE | 2019-05-26 19:45 | NUR ---
RECEDIVED PT IN BED AOX3 .DENIES PAIN .RESPIRATIONS ARE EVEN AND UNLABORED .CALL LIGHT WITH IN REACH .CONTINUE TO MONITOR
[2019-05-27] VITALS (8 sets, daily range): BP systolic 112–135; BP diastolic 58–89
[2019-05-27] MEDS: ALBUTEROL SULF 0.083% NEB SOLN 3 ML NEB NEB SCH ×7 (00:10→19:37)
[2019-05-27] MEDS: IPRATROPIUM BROMIDE 0.02% 2.5 ML NEB NEB SCH ×5 (02:30→19:37)
[2019-05-27] MEDS: POTASSIUM CHLORIDE 20 MEQ TAB CR PO SCH ×2 (05:40→17:20)
[2019-05-27 06:02] LABS: BASOPHILS # (AUTO) 0.1 (0.0-0.1); BASOPHILS % 0.5 % (0.0-1.0); EOSINOPHILS # (AUTO) 0.1 (0.0-0.4); EOSINOPHILS % 0.4 % (0.0-6.0); HEMATOCRIT 35.6 % (38.2-49.6); HEMOGLOBIN 12.2 g/dL (14.0-18.0); LYMPHOCYTES # (AUTO) 1.9 (1.0-3.2); LYMPHOCYTES % 9.6 % (18.0-39.1); MEAN CORPUSCULAR HEMOGLOBIN 30.2 pg (28-32); MEAN CORPUSCULAR HGB CONC 34.3 g/dL (31-35); MEAN CORPUSCULAR VOLUME 88.1 fL (81-99); MONOCYTES # (AUTO) 1.2 (0.2-0.8); MONOCYTES % 6.4 % (4.4-11.3); NEUTROPHILS # (AUTO) 15.3 (2.1-6.9); NEUTROPHILS % 78.3 % (38.7-80.0); PLATELET COUNT 461 x10e3/uL (140-360); RED BLOOD COUNT 4.04 x10e6/uL (4.3-5.7); RED CELL DISTRIBUTION WIDTH 14.8 % (11.7-14.4)
--- NOTE | 2019-05-27 06:02 | NUR ---
PT RESTED DURING THE NIGHT.C/O OF COUGH .NOTIFIED DR MCMILLAN .GO THE ORDER TO GIVE ROBITUSSIN DM .CALL LIGHT WITH IN REACH .CONTINUE TO MONITOR
[2019-05-27] MEDS ORDERED: GUAIFENESIN/DEXTROMETHORPHAN LIQD 5 ML UDC PO PRN (06:15)
[2019-05-27 06:22] LABS: ALANINE AMINOTRANSFERASE 67 IU/L (0-55); ALBUMIN 2.3 g/dL (3.5-5.0); ALBUMIN/GLOBULIN RATIO 0.4 (0.8-2.0); ALKALINE PHOSPHATASE 202 IU/L (40-150); ANION GAP 12.1 mmol/L (8-16); BLOOD UREA NITROGEN 7 mg/dL (7-26); BUN/CREATININE RATIO 8 (6-25); CALCIUM 9.6 mg/dL (8.4-10.2); CARBON DIOXIDE 25 mmol/L (22-29); CHLORIDE 97 mmol/L (98-107); CREATININE, SERUM 0.84 mg/dL (0.72-1.25); EST GLOMERULAR FILTRATION RATE > 60 ML/MIN (60-); GLUCOSE 103 mg/dL (74-118); POTASSIUM 4.1 mmol/L (3.5-5.1); SODIUM 130 mmol/L (136-145)
--- NOTE | 2019-05-27 07:01 | NUR ---
PATIENT IS AWAKE AND IN STABLE CONDITION WITH NO S/S OF RESPIRATORY DISTRESS. PATIENT DENIES PAIN. COUGH MEDICINE ADMINISTERED TO PATIENT BY TESTER SEMICONDUCTOR PACKAGES NURSE. CALL LIGHT IS WITHIN REACH, PATIENT INSTRUCTED TO CALL FOR ASSISTANCE NEEDED.
--- NOTE | 2019-05-27 07:24 | NUR ---
BEDSIDE REPORT GIVEN TO THE ONCOMING NURSE
[2019-05-27] MEDS: CEFTRIAXONE SOD 1 GM/NS 50 ML 50 ML IV SCH (12:33)
--- NOTE | 2019-05-27 19:14 | NUR ---
PATIENT IS IN STABLE CONDITION WITH NO S/S OF RESPIRATORY DISTRESS- PATIENT DENIES PAIN. FAMILY MEMBERS PRESENT IN ROOM. CALL LIGHT IS WITHIN REACH, PATIENT INSTRUCTED TO CALL FOR ASSISTANCE NEEDED. REPORT GIVEN TO ONCOMING NURSE.
--- NOTE | 2019-05-27 19:18 | NUR ---
PT IS RESTING IN BED WITH FAMILY AT BEDSIDE. RESPIRATION IS EVEN AND UNLABORED, NO DISTRESS NOTED. BED IN THE LOWEST POSITION, LOCKED, AND CALL LIGHT WITHIN REACH. WILL CONTINUE TO MONITOR.
[2019-05-28] VITALS (8 sets, daily range): BP systolic 114–122; BP diastolic 57–69
[2019-05-28] MEDS: IPRATROPIUM BROMIDE 0.02% 2.5 ML NEB NEB SCH ×2 (00:10→07:23)
[2019-05-28] MEDS: ALBUTEROL SULF 0.083% NEB SOLN 3 ML NEB NEB SCH ×2 (02:46→07:23)
[2019-05-28] MEDS: POTASSIUM CHLORIDE 20 MEQ TAB CR PO SCH ×2 (05:42→18:32)
[2019-05-28 05:52] LABS: BASOPHILS # (AUTO) 0.1 (0.0-0.1); BASOPHILS % 0.5 % (0.0-1.0); EOSINOPHILS # (AUTO) 0.1 (0.0-0.4); EOSINOPHILS % 0.3 % (0.0-6.0); HEMATOCRIT 36.6 % (38.2-49.6); HEMOGLOBIN 12.2 g/dL (14.0-18.0); LYMPHOCYTES # (AUTO) 1.7 (1.0-3.2); LYMPHOCYTES % 9.6 % (18.0-39.1); MEAN CORPUSCULAR HGB CONC 33.3 g/dL (31-35); MEAN CORPUSCULAR VOLUME 90.1 fL (81-99); MONOCYTES # (AUTO) 1.1 (0.2-0.8); MONOCYTES % 6.2 % (4.4-11.3); NEUTROPHILS # (AUTO) 13.9 (2.1-6.9); NEUTROPHILS % 80.3 % (38.7-80.0); PLATELET COUNT 478 x10e3/uL (140-360); RED BLOOD COUNT 4.06 x10e6/uL (4.3-5.7); RED CELL DISTRIBUTION WIDTH 14.6 % (11.7-14.4)
[2019-05-28 06:14] LABS: ALANINE AMINOTRANSFERASE 56 IU/L (0-55); ALBUMIN 2.4 g/dL (3.5-5.0); ALBUMIN/GLOBULIN RATIO 0.4 (0.8-2.0); ALKALINE PHOSPHATASE 195 IU/L (40-150); BLOOD UREA NITROGEN 8 mg/dL (7-26); BUN/CREATININE RATIO 10 (6-25); CALCIUM 9.5 mg/dL (8.4-10.2); CARBON DIOXIDE 23 mmol/L (22-29); CHLORIDE 100 mmol/L (98-107); CREATININE, SERUM 0.78 mg/dL (0.72-1.25); EST GLOMERULAR FILTRATION RATE > 60 ML/MIN (60-); GLUCOSE 100 mg/dL (74-118); SODIUM 131 mmol/L (136-145)
--- NOTE | 2019-05-28 07:39 | Progress Note ---
DATE: SUBJECTIVE: The patient did well overnight. Coughing overall is much better. OBJECTIVE: VITAL SIGNS: Temperature 99.5, pulse 73, blood pressure is 122/58, sats 99%. GENERAL: No apparent distress. Lying in bed. CARDIOVASCULAR: Regular rate and rhythm. LUNGS: Decreased breath sounds on the left. ABDOMEN: Good bowel sounds. Soft, nontender. EXTREMITIES: No clubbing or cyanosis. NEUROLOGIC: Nonfocal. ASSESSMENT AND PLAN: 1. Pneumonia with cavitary lesion. Continue with current antibiotics per Infectious Disease. 2. Leukocytosis. Continue to monitor. 3. Anemia. Continue to monitor. Please see hospital chart for full details. MD ASTON Navarrete/ANNA /[id number]
[2019-05-28 07:48] LABS: BAND NEUTROPHILS % (MANUAL) 2 %; EOSINOPHILS % (MANUAL) 1 % (0-7); LYMPHOCYTES % (MANUAL) 12 % (19-48); MONOCYTES % (MANUAL) 8 % (3.4-9.0); NEUTROPHILS % (MANUAL) 77 % (40-74)
[2019-05-28 07:52] LABS: ANISOCYTOSIS SLIGHT; MICROCYTOSIS SLIGHT; OVALOCYTES FEW; PLATELET ESTIMATE SLIGHTLY INCREASED; POIKILOCYTOSIS SLIGHT; RBC MORPHOLOGY COMMENT ABNORMAL
[2019-05-28 07:53] LABS: PLATELET MORPHOLOGY COMMENT FEW LARGE
--- NOTE | 2019-05-28 08:00 | NUR ---
PT IN BED SLEEPING ,NO S/S DISCOMFORT.
--- NOTE | 2019-05-28 10:00 | NUR ---
DR CUADRA HERE,ORDERS WRITTEN
[2019-05-28] MEDS: CEFTRIAXONE SOD 1 GM/NS 50 ML 50 ML IV SCH (13:00)
[2019-05-28] MEDS ORDERED: IPRATROPIUM BROMIDE 0.02% 2.5 ML NEB NEB PRN (15:00)
[2019-05-28] MEDS ORDERED: ALBUTEROL SULF 0.083% NEB SOLN 3 ML NEB NEB PRN (15:00)
--- NOTE | 2019-05-28 19:30 | NUR ---
patient received awake, alert, lying quietly in bed. no c/o pain noted. pm assessment complete. patient instructed to call for assistance when needed.
[2019-05-29] VITALS (7 sets, daily range): BP systolic 112–125; BP diastolic 56–72
[2019-05-29] MEDS: POTASSIUM CHLORIDE 20 MEQ TAB CR PO SCH ×2 (05:33→17:00)
--- NOTE | 2019-05-29 10:22 | Diagnostic Imaging Report ---
EXAMINATION: CHEST 2 VIEWS INDICATION: Pneumonia COMPARISON: Multiple prior chest radiograph, most recently of 05/26/2019 FINDINGS: LINES/TUBES:None LUNGS:The lungs are moderately inflated. Again seen and essentially unchanged is the large cavitary lesion at the left lateral midlung. Patchy and nodular opacities in the right midlung also appear unchanged. PLEURA:No pleural effusion or pneumothorax. MEDIASTINUM:The cardiomediastinal silhouette appears unchanged in size and shape. BONES/SOFT TISSUES:No acute osseous injury. ABDOMEN:No free air under the diaphragm. IMPRESSION: No significant interval change in left midlung cavitary lesion and smaller nodular and patchy opacities at the right midlung. Signed by: Ramu Moseley MD on 05/29/2019 10:19 AM
--- NOTE | 2019-05-29 11:05 | NUR ---
Paged Dr Rai regarding his clearance to get patient discharge.
--- NOTE | 2019-05-29 11:15 | Progress Note ---
DATE: SUBJECTIVE: No new complaints overnight. OBJECTIVE: VITAL SIGNS: Stable. Still has low-grade temperatures, it is 99.8, pulse 72, blood pressure 117/58, and saturations 97%. GENERAL: No apparent distress. CARDIOVASCULAR: Regular rate and rhythm. LUNGS: Decreased breath sounds on the left with some rhonchi. Right side is clear. ABDOMEN: Good bowel sounds. Soft and nontender. EXTREMITIES: No clubbing or cyanosis. NEUROLOGIC: Nonfocal. ASSESSMENT AND PLAN: 1. Pneumonia. Continue with current care. TB spot was negative. AFB cultures were negative. 2. Leukocytosis. Continue to monitor. 3. Anemia. Continue to monitor. 4. Thrombocythemia, most likely reactive. Continue to monitor. Please see hospital chart for full details. MD ASTON Navarrete/ANNA /[id number]
[2019-05-29] MEDS: CEFTRIAXONE SOD 1 GM/NS 50 ML 50 ML IV SCH (13:31)
--- NOTE | 2019-05-29 13:55 | NUR ---
Per Dr Rai he s waiting for Pathology report. case management notified.
--- NOTE | 2019-05-29 14:36 | NUR ---
per pathology report will be ready by later this evening or by tomorrow
--- NOTE | 2019-05-29 19:24 | NUR ---
WALKING ROUNDS PERFORMED, RECEIVED PT LAYING SEMI FOWLERS IN BED, AAOX3, RR EVEN AND NON-LABORED, ON ROOM AIR. NO S/SX OF DISTRESS NOTED. LEFT PT LAYING SEMI FOWLERS IN BED, BED IN LOW LOCKED POSITION, SIDE RAILS UPX2, CALL LIGHT AND PHONE WITHIN REACH.
[2019-05-30] VITALS: BP 102/51
[2019-05-30 04:00] VITALS: BP 115/56
[2019-05-30] MEDS: POTASSIUM CHLORIDE 20 MEQ TAB CR PO SCH (05:38)
[2019-05-30 05:46] LABS: BASOPHILS # (AUTO) 0.1 (0.0-0.1); BASOPHILS % 0.7 % (0.0-1.0); EOSINOPHILS # (AUTO) 0.1 (0.0-0.4); EOSINOPHILS % 0.6 % (0.0-6.0); HEMATOCRIT 36.9 % (38.2-49.6); HEMOGLOBIN 12.5 g/dL (14.0-18.0); LYMPHOCYTES # (AUTO) 1.5 (1.0-3.2); LYMPHOCYTES % 12.2 % (18.0-39.1); MEAN CORPUSCULAR HGB CONC 33.9 g/dL (31-35); MEAN CORPUSCULAR VOLUME 88.5 fL (81-99); MONOCYTES # (AUTO) 0.9 (0.2-0.8); MONOCYTES % 7.5 % (4.4-11.3); NEUTROPHILS # (AUTO) 9.4 (2.1-6.9); NEUTROPHILS % 77.4 % (38.7-80.0); PLATELET COUNT 552 x10e3/uL (140-360); RED BLOOD COUNT 4.17 x10e6/uL (4.3-5.7); RED CELL DISTRIBUTION WIDTH 14.4 % (11.7-14.4)
--- NOTE | 2019-05-30 06:45 | Discharge Summary ---
DISCHARGE DIAGNOSES: 1. Streptococcus pneumoniae with cavitary lesion. 2. Leukocytosis. HISTORY OF PRESENT ILLNESS AND HOSPITAL COURSE: See hospital chart for full details. The patient is young gentleman, who presented with pneumonia symptoms that was cavitary on his x-ray and CT scan. He was placed in isolation, placed on broad-spectrum antibiotics and was seen by Pulmonary, Infectious Disease. He did have a bronch done that showed negative washings for AFB and still grew out strep pneumoniae. His TB-spot test was also negative. His fever did resolve. His leukocytosis had maintained, that was improved. At the time of discharge, the patient was doing very well and he wanted to go home, so he was discharged home with p.o. Augmentin for an extended period of time and told to follow up with both Dr. Rai and Dr. oCrey, as well as his primary care physician in 2-3 weeks. Please see hospital chart for full details. MD ASTON Navarrete/ANNA /[id number]
[2019-05-30 07:35] VITALS: BP 117/60
--- NOTE | 2019-05-30 07:35 | NUR ---
PATIENT IN BED WITH HEAD OF BED ELEVATED TALKING ON THE PHONE, NO RESPIRATORY DISTRESS NOTED. BED IN LOWER POSITION, CALL LIGHT AT REACH.
[2019-05-30 07:47] VITALS: BP 117/60
[2019-05-30] MEDS ORDERED: AUGMENTIN 875-1 EACH PO (09:38)
--- NOTE | 2019-05-30 10:30 | NUR ---
PATIENT DISCHARGED HOME. DISCHARGE INSTRUCTIONS, PRESCRIPTION, AND FOLLOW UP GIVEN TO PATIENT, HE VERBALIZED UNDERSTANDING. IV TO LEFT WRIST REMOVED WITH TIP INTACT. ALL PERSONAL ITEM TAKEN WITH PATIENT. LEFT UNIT PER WHEEL CHAIR TO FRONT LOBBY IN STABLE CONDITION.
--- NOTE | 2019-05-30 12:05 | NUR ---
Visit made by the Spiritual Care Department Pastoral Visitor, Kenisha Weir. PV provided pastoral presence, prayer, hospitality, communion, and supportive listening. Pastoral Visitor informed pt/family of the scope of [employer] and availability. [facility] Spiritual Care Department O: [phone] Pager: [phone] ([phone] number calling from) Addendum: 06/02/19 at 1237 by Dewayne Partida [facility]AP CORRECTION: ABOVE VISIT TOOK PLACE ON 05/30/19.
== END 2019-05-30 10:27 | disposition home or self-care (01) | DRG 871 ==
LOC: ER 11:43 → ERHOLD 14:01 → MED/SURG3 21:40
PROVIDERS: ADMIT Internal Medicine; ATTEND Internal Medicine
PROC: 0BD98ZX Extraction of Lingula Bronchus, Via Natural or Artificial Opening Endoscopic, Diagnostic (ICD-10-PCS; 2019-05-23)
PROC: 0BB98ZX Excision of Lingula Bronchus, Via Natural or Artificial Opening Endoscopic, Diagnostic (ICD-10-PCS; 2019-05-23)
PROC: 0B9G8ZX Drainage of Left Upper Lung Lobe, Via Natural or Artificial Opening Endoscopic, Diagnostic (ICD-10-PCS; 2019-05-23)
PROC: 0BJ08ZZ Inspection of Tracheobronchial Tree, Via Natural or Artificial Opening Endoscopic (ICD-10-PCS; principal; 2019-05-23 11:00)
DX: A40.3 Sepsis due to Streptococcus pneumoniae (principal); J13 Pneumonia due to Streptococcus pneumoniae; A15.0 Tuberculosis of lung; J98.4 Other disorders of lung; F17.200 Nicotine dependence, unspecified, uncomplicated; D69.6 Thrombocytopenia, unspecified; D64.9 Anemia, unspecified; R91.1 Solitary pulmonary nodule; E87.6 Hypokalemia
CPT/HCPCS: 31622; 36415; 71045; 71046; 71260; 80053; 81001; 82550; 82553; 83518; 83735; 84484; 85025; 86635; 87040; 87070; 87102; 87109; 87116; 87205; 87206; 87335; 87385; 87390; 87400; 88304; 88312; 88342; 93005; 94640; 99284; G0433; G0435; J0171; J0696; J2001; J2250; J2405; J2543; J3010; J7030; Q9967

== ENCOUNTER 2019-12-02 20:00 | Inpatient (IN) | payer SELFPAY ==
[~2019-12-02] VITALS: Ht 167.6 cm; Wt 78.2 kg
[~2019-12-02 20:00] MED LIST: AUGMENTIN 875-1 EACH PO
[2019-12-02] MEDS ORDERED: SODIUM CHLORIDE 0.9% 1000ML 1,000 ML IV STA (20:13)
--- OUTSIDE RECORDS SUMMARY | 2019-12-02 20:16 | XMS REPORT ---
Author Author [facility] t Organization [facility] Address [address] [place] [address] Phone Unavailable Care Team Providers Care Division Leader Name Role Phone NO, PCP PCP Unavailable ERICH MCMILLAN Attphys Unavailable ERICH MCMILLAN Admphys Unavailable Problems Condition Name Condition Details Condition Category Status Onset Date Resolution Date Last Treatment Date Treating Clinician Comments Source Fever Fever Problem Active [facility] Hypokalemia Hypokalemia Problem Active [facility] Pleurisy Pleurisy Problem Active [facility] Pneumonia Pneumonia Problem Active [facility] Allergies, Adverse Reactions, Alerts This patient has no known allergies or adverse reactions. Medications Ordered Medication Name Filled Medication Name Start Date Stop Da te Current Medication? Ordering Clinician Indication Dosage Frequency Signature (SIG) Comments Components Source Amoxicillin/Potassium Clav (Augmentin 875-125 Tablet) 1 Each Tablet Amoxicillin/Potassium Clav (Augmentin 875-125 Tablet) 1 Each Tablet Yes [address] [facility] Procedures Procedure Date / Time Performed Performing Clinician [facility] e X-ray of chest, two views 2019-05-29 00:00:00 CHRIS CUADRA CH I [facility] X-ray of chest, two views 2019-05-26 00:00:00 CHRIS CUADRA I [facility] Bronchoscopy with biopsy 2019-05-23 00:00:00 CRISTOFER THEODORE I [facility] X-ray of chest, two views 2019-05-20 00:00:00 CHAMP COULTER I [facility] Computed tomography of chest with contrast 2019-05-20 00:00:[address] [facility] Encounters Start Date/Time End Date/Time Encounter Type Admission Type [facility] Care Department Encounter ID Source 2019-05-20 14:01:00 2019-05-30 10:27:00 Discharged Inpatient [address] [facility] [id number] [facility] Results Test Description Test Time Test Comments Results Result Comments Source White Blood Count 2019-05-30 05:57:00 Test Item White Blood Count (test code = 6690-2) 12.15 4.8-10.8 [facility] Ymowm3368-22-64 05:57:00* Test Item Value Reference Range Interpretation Comments Red Blood Count (test code = 789-8) 4.17 4.3-5.7 [facility]Hemoglobin2019-11-15 05:57:00* Test Item Value Reference Range Interpretation Comments Hemoglobin (test code = 64873-7) 12.5 14.0-18.0 [facility] HospitalHematocrit2019-11-15 05:57:00* Test Item Value Reference Range Interpretation Comments Hematocrit (test code = 4544-3) 36.9 38.2-49.6 [facility]Mean Corpuscular Qlnfjw4206-99-57 05:57:00* Test Item Value Reference Range Interpretation Comments Mean Corpuscular Volume (test code = 787-2) 88.5 81-99 [facility]Mean Corpuscular Qxiirgflbx6697-50-31 05:57:00* Test Item Value Reference Range Interpretation Comments Mean Corpuscular Hemoglobin (test code = 785-6) 30.0 28-32 [facility]Mean Corpuscular Hemoglobin Concent 2019-05-30 05:57:00* Test Item Value Reference Range Interpretation Comments Mean Corpuscular Hemoglobin Concent (test code = 786-4) 33.9 31-35 [facility]Red Cell Distribution Ktfts1213-91-72 05:57:00* Test Item Value Reference Range Interpretation Comments Red Cell Distribution Width (test code = 65078-7) 14.4 11.7 -14.4 [facility] HospitalPlatelet Utyoj5399-53-15 05:57:00* Test Item Value Reference Range Interpretation Comments Platelet Count (test code = 777-3) 552 140-360 [facility] HospitalNeutrophils (%) (Auto)2019-05-30 05:57:00 * Test Item Value Reference Range Interpretation Comments Neutrophils (%) (Auto) (test code = 90780-4) 77.4 38.7-80.0 [facility] HospitalLymphocytes (%) (Auto)2019-05-30 05:57:00 * Test Item Value Reference Range Interpretation Comments Lymphocytes (%) (Auto) (test code = 736-9) 12.2 18.0-39.1 [facility] HospitalMonocytes (%) (Auto)2019-05-30 05:57:00* Test Item Value Reference Range Interpretation Comments Monocytes (%) (Auto) (test code = 5905-5) 7.5 4.4-11.3 [facility] HospitalEosinophils (%) (Auto)2019-05-30 05:57:00 * Test Item Value Reference Range Interpretation Comments Eosinophils (%) (Auto) (test code = 713-8) 0.6 0.0-6.0 [facility] HospitalBasophils (%) (Auto)2019-05-30 05:57:00* Test Item Value Reference Range Interpretation Comments Basophils (%) (Auto) (test code = 706-2) 0.7 0.0-1.0 [facility] HospitalIM GRANULOCYTES %2019-05-30 05:57:00* Test Item Value Reference Range Interpretation Comments IM GRANULOCYTES % (test code = IM GRANULOCYTES %) 1.6 0.0- 1.0 [facility] HospitalNeutrophils # (Auto)2019-05-30 05:57:00* Test Item Value Reference Range Interpretation Comments Neutrophils # (Auto) (test code = 751-8) 9.4 2.1-6.9 [facility] HospitalLymphocytes # (Auto)2019-05-30 05:57:00* Test Item Value Reference Range Interpretation Comments Lymphocytes # (Auto) (test code = 44035-8) 1.5 1.0-3.2 [facility] HospitalMonocytes # (Auto)2019-05-30 05:57:00* Test Item Value Reference Range Interpretation Comments Monocytes # (Auto) (test code = 742-7) 0.9 0.2-0.8 [facility] HospitalEosinophils # (Auto)2019-05-30 05:57:00* Test Item Value Reference Range Interpretation Comments Eosinophils # (Auto) (test code = 711-2) 0.1 0.0-0.4 [facility] HospitalBasophils # (Auto)2019-05-30 05:57:00* Test Item Value Reference Range Interpretation Comments Basophils # (Auto) (test code = 704-7) 0.1 0.0-0.1 [facility] HospitalAbsolute Immature Granulocyte (auto 2019-05-30 05:57:00* Test Item Value Reference Range Interpretation Comments Absolute Immature Granulocyte (auto (annabelle t code = Absolute Immature Granulocyte (auto) 0.19 0-0.1 [facility] HospitalCHEST 2 GBBRJ9082-47-30 10:15:00 [place] [address] Patient Name: VANDA ALTAMIRANO MR #: [id number] : 1985 Age/Sex: 34/M Req #: [id number] Adm Physician: ERICH MCMILLAN MD Ordered by: CHRIS CUADRA MD Report #: [id number] Location: MED/SURG3 Room/Bed: 299 Procedure: [id number] D X/CHEST 2 VIEWS Exam Date: 05/29/19 Exam Time: 0950 REPORT STATUS: Signed EXAMINATIO N: CHEST 2 VIEWS INDICATION: Pneumonia COMPARISON: Multiple prior chest radiograph, most recently of 05/26/2019 FINDINGS: LINES/TU BES:None LUNGS:The lungs are moderately inflated. Again seen and essentiall y unchanged is the large cavitary lesion at the left lateral midlung. Patchy a nd nodular opacities in the right midlung also appear unchanged. PLEURA:N o pleural effusion or pneumothorax. MEDIASTINUM:The cardiomediastinal silho uette appears unchanged in size and shape. BONES/SOFT TISSUES:No acute os seous injury. ABDOMEN:No free air under the diaphragm. IMPRESSION: No significant interval change in left midlung cavitary lesion and smaller nodular and patchy opacities at the right midlung. Signed by: Indy Lake MD on 05/29/2019 10:19 AM Dictated By: INDY LAKE MD Electronically Sign ed By: INDY LAKE MD on 05/29/19 1019 Transcribed By: PATRICK on 05/29/19 1019 COPY TO: CHRIS CUADRA MD Blood Kgkcnnp6897-18-06 09:09:00* Test Item Value Reference Range Interpretation Comments Blood Culture (test code = 49091945) NO GROWTH AFTER [address] [facility] HospitalTB Test (T-Spot)2019-05-28 16:15:00* Test Item Value Reference Range Interpretation Comments TB Test (T-Spot) (test code = TB Test (T-Spot)) 0 T-SPOT.TB Negative Normal Value: NegativePanel A Spot Count (Corrected for N egative Control) 0Panel B Spot Count (Corrected for Negative Control) 0Negavtive Control PassedPositive Conrol PassedSt. [facility]'s [facility] Hospital Differential Total Cells Rpxhmwe3974-32-68 07:53:00* Test Item Value Reference Range Interpretation Comments Differential Total Cells Counted (test code = Lili larios Total Cells Counted) 100 [facility] HospitalNeutrophils % (Manual)2019-05-28 07:53:00 * Test Item Value Reference Range Interpretation Comments Neutrophils % (Manual) (test code = 99051-9) 77 40-74 [facility] HospitalBand Neutrophils %2019-05-28 07:53:00* Test Item Value Reference Range Interpretation Comments Band Neutrophils % (test code = 764-1) 2 [facility] HospitalLymphocytes % (Manual)2019-05-28 07:53:00 * Test Item Value Reference Range Interpretation Comments Lymphocytes % (Manual) (test code = 737-7) 12 19-48 [facility] HospitalMonocytes % (Manual)2019-05-28 07:53:00* Test Item Value Reference Range Interpretation Comments Monocytes % (Manual) (test code = 744-3) 8 3.4-9.0 [facility] HospitalEosinophils % (Manual)2019-05-28 07:53:00 * Test Item Value Reference Range Interpretation Comments Eosinophils % (Manual) (test code = 714-6) 1 0-7 [facility] HospitalPlatelet Iuwjimri3560-95-58 07:53:00* Test Item Value Reference Range Interpretation Comments Platelet Estimate (test code = 86785-1) SLIGHTLY INCREASED [facility] HospitalPlatelet Morphology Tiesdsj2899-65-66 07:53:00* Test Item Value Reference Range Interpretation Comments Platelet Morphology Comment (test code = 74966-6) FEW LARGE [facility] HospitalPoikilocytosis2019-11-13 07:53:00* Test Item Value Reference Range Interpretation Comments Poikilocytosis (test code = 779-9) SLIGHT [facility] HospitalAnisocytosis2019-11-13 07:53:00* Test Item Value Reference Range Interpretation Comments Anisocytosis (test code = 702-1) SLIGHT [facility] HospitalMicrocytosis2019-11-13 07:53:00* Test Item Value Reference Range Interpretation Comments Microcytosis (test code = 741-9) SLIGHT [facility] HospitalMacrocytosis2019-11-13 07:53:00* Test Item Value Reference Range Interpretation Comments Macrocytosis (test code = 738-5) SLIGHT [facility] HospitalOvalocytes2019-11-13 07:53:00* Test Item Value Reference Range Interpretation Comments Ovalocytes (test code = 774-0) FEW [facility] HospitalRed Cell Morphology Aurnboh3455-09-53 07:53:00* Test Item Value Reference Range Interpretation Comments Red Cell Morphology Comment (test code = 6742-1) ABNORMAL [facility]wood[facility] Xdtze9737-85-40 06:20:00* Test Item Value Reference Range Interpretation Comments Sodium Level (test code = 2951-2) 131 136-145 [facility] HospitalPotassium Hmnlj1045-27-90 06:20:00* Test Item Value Reference Range Interpretation Comments Potassium Level (test code = 2823-3) 4.0 3.5-5.1 [facility] HospitalChloride Nuprn4081-94-13 06:20:00* Test Item Value Reference Range Interpretation Comments Chloride Level (test code = 2075-0) 100 98-107 [facility] HospitalCarbon Dioxide Zmxsj5705-76-67 06:20:00* Test Item Value Reference Range Interpretation Comments Carbon Dioxide Level (test code = 2028-9) 23 22-29 [facility] HospitalAnion Fxa7054-38-65 06:20:00* Test Item Value Reference Range Interpretation Comments Anion Gap (test code = 51334-3) 12.0 8-16 [facility] HospitalBlood Urea Hfhzaenx1456-74-23 06:20:00* Test Item Value Reference Range Interpretation Comments Blood Urea Nitrogen (test code = 3094-0) 8 7-26 [facility] HospitalCreatinine2019-11-13 06:20:00* Test Item Value Reference Range Interpretation Comments Creatinine (test code = 2160-0) 0.78 0.72-1.25 [facility] HospitalBUN/Creatinine Ybzxl6671-48-07 06:20:00* Test Item Value Reference Range Interpretation Comments BUN/Creatinine Ratio (test code = 3097-3) 10 6-25 [facility] HospitalEstimat Glomerular Filtration Rate 2019-05-28 06:20:00* Test Item Value Reference Range Interpretation Comments Estimat Glomerular Filtration Rate (test code = 858707397) > 60 >60 Ranges were taken from the National Kidney Disease Education Program and the [facility] literature.Reference ranges:60 or greater: Zshfvb30-39 ( for 3 consecutive months): Chronic kidney disease 15 or less: Kidney failureCHI [facility]S HospitalGlucose Onpej0703-97-16 06:20:00* Test Item Value Reference Range Interpretation Comments Glucose Level (test code = YJB0652) 100 74-118 [facility] HospitalCalcium Gbuwv9069-14-19 06:20:00* Test Item Value Reference Range Interpretation Comments Calcium Level (test code = 98765-2) 9.5 8.4-10.2 [facility] HospitalTotal Xdtbnsxbv6930-49-44 06:20:00* Test Item Value Reference Range Interpretation Comments Total Bilirubin (test code = 1975-2) 0.5 0.2-1.2 [facility] HospitalAspartate Amino Transf (AST/SGOT) 2019-05-28 06:20:00* Test Item Value Reference Range Interpretation Comments Aspartate Amino Transf (AST/SGOT) (test code = Aspartate Amino Transf (AST/SGOT)) 27 5-34 [facility] HospitalAlanine Aminotransferase (ALT/SGPT) 2019-05-28 06:20:00* Test Item Value Reference Range Interpretation Comments Alanine Aminotransferase (ALT/SGPT) (test code = 1742-6) 56 0-55 [facility] HospitalTotal Uuwrqzx1715-29-58 06:20:00* Test Item Value Reference Range Interpretation Comments Total Protein (test code = 2885-2) 8.1 6.5-8.1 [facility] HospitalAlbumin2019-11-13 06:20:00* Test Item Value Reference Range Interpretation Comments Albumin (test code = 1751-7) 2.4 3.5-5.0 [facility] HospitalGlobulin2019-11-13 06:20:00* Test Item Value Reference Range Interpretation Comments Globulin (test code = 63851-2) 5.7 2.3-3.5 [facility] HospitalAlbumin/Globulin Rlsca3689-50-30 06:20:00 * Test Item Value Reference Range Interpretation Comments Albumin/Globulin Ratio (test code = 1759-0) 0.4 0.8-2.0 [facility] HospitalAlkaline Kqaxkpyrgil1928-78-38 06:20:00* Test Item Value Reference Range Interpretation Comments Alkaline Phosphatase (test code = 6768-6) 195 40-150 [facility] HospitalCHEST 2 ZWRRT7261-62-63 12:22:00 [facility] [address] [place] [address] Patient Name: VANDA ALTAMIRANO MR #: [id number] : 1985 Age/Sex: 34/M Req #: [id number] Adm Physician: ERICH MCMILLAN MD Ordered by: CHRIS CUADRA MD Report #: [id number] Location: [facility] Room/Bed: [facility] Procedure: [id number] D X/CHEST 2 VIEWS Exam Date: Exam Time: REPORT STATUS: Signed Chest, 2 views, 05/26. History: TB. Comparison: 05/23/2019. Findings: The c ardiac silhouette is within normal limits. Large left upper lobe cavitary lesi on and patchy right upper lobe and left lower lobe opacities are present. Ther e are no acute osseous or soft tissue abnormalities. Impression: Bilate ral pneumonia, cavitary on the left, consistent with TB. Signed by: Cristino Segovia on 05/26/2019 12:26 PM Dictated By: CRISTINO SEGOVIA MD Electronical ly Signed By: CRISTINO SEGOVIA MD on 05/26/19 1226 Transcribed By: PATRICK on 05/16 08/03 1226 COPY TO: CHRIS CUADRA MD Reactive Jdqcxjeacyh4662-72-54 07:32:00* Test Item Value Reference Range Interpretation Comments Reactive Lymphocytes (test code = 83201-8) 4 [facility] Brownwoodtomatocytes2019-11-11 07:32:00* Test Item Value Reference Range Interpretation Comments Stomatocytes (test code = 64498-8) SLIGHT [facility] HospitalCHES SINGLE (PORTABLE)2019-05-23 13:00:00 [place] [address] Patient Name: VANDA ALTAMIRANO MR #: [id number] : 1985 Age/Sex: 34/M Req #: [id number] Adm Physician: ERICH MCMILLAN MD Ordered by: CRSITOFER THEODORE MD Report #: [id number] Location: [facility] Room/Bed: [facility] Procedure: 1108-00 [id number] DX/CHEST SINGLE (PORTABLE) Exam Date: 05/23/19 Ex am Time: 1200 REPORT STATUS: Signed EXAMINATION: CHEST SINGLE (PORTABLE) INDICATION: Pneumonia CO MPARISON: Chest radiograph of 05/21/2019 FINDINGS: LINES/TUBES:EKG leads overlie the chest. LUNGS:The lungs are moderately inflated. Unchanged consolidation with cavitary component at the right upper lobe. Patchy bibasi lar opacities. PLEURA:No pleural effusion or pneumothorax. MEDIASTINUM :The cardiomediastinal silhouette appears unchanged in size and shape. AAMIR MURIEL/SOFT TISSUES:No acute osseous injury. ABDOMEN:No free air under the raymond phragm. IMPRESSION: Unchanged left upper lobe consolidation with cavi tary component consistent with pneumonia. Patchy bibasilar opacities, lik елена subsegmental atelectasis. Signed by: Indy Lake MD on 05/23/2019 1:03 P M Dictated By: INDY LAKE MD 1303 Transcribed By: PATRICK on 05/23/19 1303 COPY TO: CRISTOFER THEODORE MD Magnesium Jpvpg5625-24-02 06:59:00* Test Item Value Reference Range Interpretation Comments Magnesium Level (test code = 85489-9) 1.7 1.3-2.1 [facility] HospitalHIV (1&2) Gukrvejf7303-23-95 18:28:00* Test Item Value Reference Range Interpretation Comments HIV (1&2) Antibody (test code = 34908-3) NON-REACTIVE NONREACTIVE [facility] HospitalHIV P24 Ewabygq9252-96-81 18:28:00* Test Item Value Reference Range Interpretation Comments HIV P24 Antigen (test code = HIV P24 Antigen) NON-REACTIVE NONREACT DUSTIN [facility] HospitalNucleated Red Blood Mmozy8706-86-56 07:49:00* Test Item Value Reference Range Interpretation Comments Nucleated Red Blood Cells (test code = 15039-7) 1 [facility] HospitalCreatine Kinase HM3533-83-37 07:17:00* Test Item Value Reference Range Interpretation Comments Creatine Kinase MB (test code = 94381-5) 0.30 0-5.0 [facility] HospitalTroponin B8324-95-80 07:17:00* Test Item Value Reference Range Interpretation Comments Troponin I (test code = IRT3026) < 0.001 0-0.300 [facility] HospitalCreatine Rhnxes6756-87-27 07:09:00* Test Item Value Reference Range Interpretation Comments Creatine Kinase (test code = 2157-6) 33 30-200 [facility] SINGLE (PORTABLE)2019-05-21 05:25:00 [place] [address] Patient Name: VANDA ALTAMIRANO MR #: [id number] : 1985 Age/Sex: 34/M Req #: [id number] Adm Physician: ERICH MCMILLAN MD Ordered by: CHAMP COULTER MD, MD Report #: [id number] Location: MED/SURG3 Room/Bed: [facility] Procedure: [id number] 0005 DX/CHEST SINGLE (PORTABLE) Exam Date: 05/21/19 Exam Time: 0450 REPORT STATUS: Sign ed EXAMINATION: CHEST SINGLE (PORTABLE) INDICATION: Pneumonia. COMPARISON: Chest radiograph and CT Chest 05/20/2019. FINDINGS: TU BES and LINES: None. LUNGS: Low lung volumes. Persistent cavitary consolid ation in the left midlung. Mild patchy right lower lung opacity. PLEURA: No pleural effusion or pneumothorax. HEART AND MEDIASTINUM: The cardiome diastinal silhouette is unchanged. BONES AND SOFT TISSUES: No acute osseou s abnormality. UPPER ABDOMEN: No free air under the diaphragm. IMP RESSION: Persistent cavitary consolidation in the left lung, consistent with pneumonia as seen on CT chest. Mild patchy right lower lung opacity may repres ent developing pneumonia or atelectasis. Signed by: Dr. Pantera Bonds MD on 05/21/2019 5:27 AM Dictated By: PANTERA BONDS MD 6 Transcribed By: PATRICK on 05/21/19526 C OPY TO: CAHMP COULTER CT CHEST [id number] 17:31:00 [facility] [address] [place] [address] Patient Name: VANDA ALTAMIRANO MR #: [id number] : 1985 Age/Sex: 34/M Req #: [id number] Adm Physician: ERICH MCMILLAN MD Ordered by: CHAMP COULTER MD, MD Report #: [id number] Location: [facility] Room/Bed: [place] [address] Procedure: [id number] 0033 CT/CT CHEST W Exam Date: Exam Time: REPORT STATUS: Signed CT chest with enhan cement CPT code: 00357 INDICATION: Fever, cough TECHNIQUE: 5 mm collimation axial images obtained from the thoracic inlet to the level of the diaphragm following uneventful administration of 100 cc of low osmolar, nonion ic intravenous contrast. RADIATION DOSE: Total DLP: 573.92 mGy*cm Estimated effective dose: (DLP x 0.015 x size factor) mSv CTDIvol has been reviewed. It is below the limits set by the Radiation Protocol Committee (RPC). Dose reduction techniques used: Automated exposure control, adjust ment of the mAs and/or kVp according to patient size, standardized low-dose pr otocol, and/or iterative reconstruction technique. Comparison: Chest x-ra y 1301 hours. CHEST FINDINGS: Lymph nodes: No enlarged axillary or sup raclavicular lymph nodes. There are multiple prominent mediastinal lymph nodes , particularly in the AP window and the subcarinal spaces. Left hilar lymph no bailey are prominent. Thyroid: Visualized portions are normal. Mediastinu m: No pericardial effusion. Heart and great vessels enhance normally without filling defects. The esophagus is normal. Lungs: Right Lung: Subtle band of subsegmental atelectasis in the posterior upper lobe. Left Lung: Large area of dense infiltrate in the upper lobe with several areas of central cavitation, the largest measuring 1.8 cm. There are patchy areas of groundgla ss attenuation in the superior segment of the lower lobe and in the lingula. Airways: Clear. Pleura: Trace posterior left pleural effusion. No pneu mothorax. ABDOMEN: There are coarse calcifications in the spleen. No soft tissue mass or lymphadenopathy in the visualized upper abdomen. Bone s: No focal osseous lesions. IMPRESSION: 1. Large infiltrate in the le ft upper lobe with cavitations and multiple infiltrates in the lingula and low er lobe. Findings are suggestive of cavitary pneumonia. Recommend close interv al follow-up to document interval change/resolution. 2. Enlarged mediast inal and left hilar lymph nodes are likely reactive. Signed by: Dr. Johnny Hess MD on 05/20/2019 5:40 PM Dictated By: LILLIANA HESS MD El ectronically Signed By: LILLIANA HESS MD on 05/20/191739 Transcribed By: Bethel PRECIADO on 05/20/191739 COPY TO: CHAMP COULTER Urine WBC 2019-05-20 16:13:00* Test Item Value Reference Range Interpretation Comments Urine WBC (test code = 5821-4) NONE 0-5 [facility] HospitalU[facility] [id number] 16:13:00* Test Item Value Reference Range Interpretation Comments Urine RBC (test code = 31137-5) 0-5 0-5 [facility] HospitalU[facility] Trcfeebr0792-71-75 16:13:00* Test Item Value Reference Range Interpretation Comments Urine Bacteria (test code = 67627-4) MODERATE NONE [facility] Epithelial Rqwps4677-77-99 16:13:00 * Test Item Value Reference Range Interpretation Comments Urine Epithelial Cells (test code = 76216-7) NONE NONE [facility] HospitalU[facility] Dmvxy7228-23-49 16:03:00* Test Item Value Reference Range Interpretation Comments Urine Color (test code = 5778-6) YELLOW YELLOW [facility] Hngapoh7730-82-60 16:03:00* Test Item Value Reference Range Interpretation Comments Urine Clarity (test code = 90977-7) SL CLOUDY CLEAR [facility] HospitalUrine Specific Vpjtcva6054-38-45 16:03:00 * Test Item Value Reference Range Interpretation Comments Urine Specific Thornton (test code = 5811-5) 1.015 1.010-1.[address] [facility] HospitalU[facility] [id number] 16:03:00* Test Item Value Reference Range Interpretation Comments Urine pH (test code = 37668-8) 6 5-7 [facility] Leukocyte Wgqspqsz8674-90-74 16:03:00* Test Item Value Reference Range Interpretation Comments Urine Leukocyte Esterase (test code = 32063-4) NEGATIVE NEGATIV E [facility] HospitalU[facility] Istjwtc6272-14-50 16:03:00* Test Item Value Reference Range Interpretation Comments Urine Nitrite (test code = 19988-5) NEGATIVE NEGATIVE [facility] HospitalU[facility] Fkkfeym4542-40-43 16:03:00* Test Item Value Reference Range Interpretation Comments Urine Protein (test code = 72324-5) 2+ NEGATIVE [facility] Glucose (UA)2019-05-20 16:03:00* Test Item Value Reference Range Interpretation Comments Urine Glucose (UA) (test code = 03312-6) NEGATIVE NEGATIVE [facility] Pwmdela6596-76-73 16:03:00* Test Item Value Reference Range Interpretation Comments Urine Ketones (test code = 34500-0) TRACE NEGATIVE [facility] Ghadvarsbrkj0880-60-89 16:03:00* Test Item Value Reference Range Interpretation Comments Urine Urobilinogen (test code = 17316-5) 1 0.2-1 [facility] [id number] 16:03:00* Test Item Value Reference Range Interpretation Comments Urine Bilirubin (test code = 1977-8) NEGATIVE [facility]GATIVE [facility] [id number] 16:03:00* Test Item Value Reference Range Interpretation Comments Urine Blood (test code = 38101-0) 1+ NEGATIVE [facility] [id number] 13:11:00 [place] [address] Patient Name: VANDA ALTAMIRANO MR #: [id number] : 1985 Age/Sex: 34/M Req #: [id number] [facility] Physician: Ordered by: CHAMP COULTER MD, MD Report #: [id number] Location: ER Room/Bed: Procedure: [id number] DX/CHEST 2 VIEWS Exam Date: Exam Time: REPORT STATUS: Signed EXAMINATION: CH EST 2 VIEWS INDICATION: Chest pain, shortness of breath COMPARISON : None FINDINGS: LINES/TUBES:None LUNGS:The lungs are well-i nflated. There is a 6.5 x 5.5 cm consolidation at the lateral left midlung zon e with internal lucent component. PLEURA:No pleural effusion or pneumothora x. MEDIASTINUM:The cardiomediastinal silhouette appears normal in size and shape. BONES/SOFT TISSUES:No acute osseous injury. ABDOMEN:No free air under the diaphragm. IMPRESSION: Left midlung zone 6.5 x 5.5 cm cons olidation with internal lucency for which the differential includes pneumonia or a cavitary mass lesion. RECOMMENDATION: Chest CT for further evaluatio n. Signed by: Indy Lake MD on 05/20/2019 1:13 PM Dictated By: GERTRUDE LAKE MD [id number] Transcribed By: PATRICK on 05/20/19 1311 COPY TO: CHAMP COULTER Influenza Virus Types A,B [id number] 12:54:00* Test Item Value Reference Range Interpretation Comments Influenza Virus Types A,B Antigen (test code = 51414-3) NEGATIVE NEGATIVE [facility] Streptococcus [id number] 12:48:00* Test Item Value Reference Range Interpretation Comments Group A Streptococcus Screen (test code = 90059-3) POSITIVE NEG [facility]
[2019-12-02 20:26] LABS: BASOPHILS # (AUTO) 0.1 (0.0-0.1); BASOPHILS % 0.6 % (0.0-1.0); EOSINOPHILS # (AUTO) 0.3 (0.0-0.4); EOSINOPHILS % 2.6 % (0.0-6.0); HEMATOCRIT 48.4 % (38.2-49.6); HEMOGLOBIN 16.3 g/dL (14.0-18.0); LYMPHOCYTES # (AUTO) 0.9 (1.0-3.2); LYMPHOCYTES % 9.2 % (18.0-39.1); MEAN CORPUSCULAR HGB CONC 33.7 g/dL (31-35); MONOCYTES # (AUTO) 0.8 (0.2-0.8); MONOCYTES % 7.8 % (4.4-11.3); NEUTROPHILS # (AUTO) 8.1 (2.1-6.9); NEUTROPHILS % 79.4 % (38.7-80.0); PLATELET COUNT 271 x10e3/uL (140-360); RED BLOOD COUNT 5.63 x10e6/uL (4.3-5.7); RED CELL DISTRIBUTION WIDTH 13.9 % (11.7-14.4)
[2019-12-02] MEDS ORDERED: KETOROLAC TROMETHAMINE 30 MG/ML VIAL IV ONE (20:30)
[2019-12-02 20:32] LABS: CLARITY,URINE SL CLOUDY (CLEAR); COLOR,URINE ORANGE (YELLOW); LEUKOCYTE ESTERASE ,URINE NEGATIVE (NEGATIVE); NITRITE,URINE POSITIVE (NEGATIVE); PROTEIN,URINE DIPSTICK >=300 (NEGATIVE)
[2019-12-02 20:33] LABS: AMPHETAMINES SCREEN,URINE NEGATIVE (NEGATIVE); BENZODIAZEPINES SCREEN,URINE NEGATIVE (NEGATIVE); BILIRUBIN,URINE MODERATE (NEGATIVE); KETONES,URINE 1+ (NEGATIVE); PHENCYCLIDINE SCREEN,URINE NEGATIVE (NEGATIVE); URINE UROBILINOGEN 0.2 mg/dL (0.2 - 1)
[2019-12-02 20:42] LABS: BACTERIA,URINE FEW /HPF; EPITHELIAL CELLS,URINE FEW /LPF; HYALINE CASTS 0-1 (0-1); RENAL EPITHELIAL CELLS,URINE RARE; TRANSITIONAL EPI CELLS,URINE RARE
[2019-12-02 20:45] LABS: ALBUMIN 5.4 g/dL (3.5-5.0); ANION GAP 23.7 mmol/L (8-16); CREATININE, SERUM 3.66 mg/dL (0.72-1.25); POTASSIUM 4.7 mmol/L (3.5-5.1)
--- NOTE | 2019-12-02 21:19 | Emergency Department Note ---
History of Present Illnes History of Present Illness Chief Complaint: Abdominal Complaints History of Present Illness This is a 34 year old male arrived with 1 day h/o RLQ pain, pt states pain is constant worse with motion, denies any trauma. Admits to nausea but not vomiting, diarrhea or constipation. Pt denies any fever. Chief Complaint Comment Patient c/o RLQ pain that started today while working. Patient states he felt a popping sensation to RLQ and pushed the "ball" back in. Patient also c/o of muscles locking up that also started today. Dark tea color urine noted. Historian: Patient Arrival Mode: Car Radiation: flank Severity: moderate Onset quality: sudden Duration (how long): hour(s) Timing of current episode: intermittent Progression: unchanged Chronicity: new Context: recent illness, recent surgery, recent immobilization, recent travel, trauma/injury Relieving factors: none Exacerbating factors: none Associated symptoms: denies other symptoms Past Medical/Family History Physician Review I have reviewed the patient's past medical and family history. Any updates have been documented here. Past Medical History Recent Fever: No Clinical Suspicion of Infectio: No New/Unexplained Change in Ment: No Past Medical History: None Past Surgical History: None Social History Smoking Cessation: Unknown if ever smoked Family History Family history of heart diseas: No Other Last Tetanus: UTD Review of Systems Review of Systems Constitutional: no symptoms EENTM: no symptoms Cardiovascular: no symptoms Respiratory: no symptoms Gastrointestinal: no symptoms, as per HPI, abdominal pain, nausea; constipation, diarrhea, vomiting Genitourinary: no symptoms; discharge, dysuria, frequency, hematuria Musculoskeletal: no symptoms Neurological: no symptoms Psychological: no symptoms Endocrine: no symptoms Hematological/Lymphatic: no symptoms Review of other systems All other systems reviewed and negative. Physical Exam Related Data Allergies: Coded Allergies: No Known Allergies (Unverified , 05/20/19) Triage Vital Signs Vital Signs Date Time Temp Pulse Resp B/P (MAP) Pulse Ox O2 Delivery O2 Flow Rate FiO2 12/02/19 20:04 98.5 86 20 142/102 100 Vital signs reviewed: Yes Physical Exam CONSTITUTIONAL Constitutional: well-developed, well-nourished HENT HENT: normocephalic, atraumatic, oropharynx clear/moist, nose normal HENT L/R: left ext ear normal, right ext ear normal EYES Eyes: PERRL, conjunctivae normal NECK Neck: ROM normal PULMONARY Pulmonary: effort normal, breath sounds normal CARDIOVASCULAR Cardiovascular: regular rhythm, heart sounds normal, capillary refill normal, normal rate GASTROINTESTINAL Abdominal: soft, bowel sounds normal; distension; tender (RLQ tenderness on deep palpation); guarding, mass, rebound GENITOURINARY Genitourinary: exam deferred SKIN Skin: warm, dry MUSCULOSKELETAL Musculoskeletal: ROM normal NEUROLOGICAL Neurological: alert, oriented x 3, no gross motor or sensory deficits PSYCHOLOGICAL Psychological: mood/affect normal, judgement normal Results Laboratory Result Diagram: 12/02/19201412/02/192014 Laboratory Laboratory Tests Test 12/02/19 20:15 White Blood Count 10.25 x10e3/uL (4.8-10.8) Red Blood Count 5.63 x10e6/uL (4.3-5.7) Hemoglobin 16.3 g/dL (14.0-18.0) Hematocrit 48.4 % (38.2-49.6) Mean Corpuscular Volume 86.0 fL (81-99) Mean Corpuscular Hemoglobin 29.0 pg (28-32) Mean Corpuscular Hemoglobin Concent 33.7 g/dL (31-35) Red Cell Distribution Width 13.9 % (11.7-14.4) Platelet Count 271 x10e3/uL (140-360) Neutrophils (%) (Auto) 79.4 % (38.7-80.0) Lymphocytes (%) (Auto) 9.2 % (18.0-39.1) Monocytes (%) (Auto) 7.8 % (4.4-11.3) Eosinophils (%) (Auto) 2.6 % (0.0-6.0) Basophils (%) (Auto) 0.6 % (0.0-1.0) Neutrophils # (Auto) 8.1 (2.1-6.9) Lymphocytes # (Auto) 0.9 (1.0-3.2) Monocytes # (Auto) 0.8 (0.2-0.8) Eosinophils # (Auto) 0.3 (0.0-0.4) Basophils # (Auto) 0.1 (0.0-0.1) Absolute Immature Granulocyte (auto 0.04 x10e3/uL (0-0.1) Urine Color [place] (YELLOW) Urine Clarity Sl cloudy (CLEAR) Urine pH 5.5 (5 - 7) Urine Specific [place] 1.030 (1.010-1.025) Urine Protein >=300 (NEGATIVE) Urine Glucose (UA) Negative (NEGATIVE) Urine Ketones 1+ (NEGATIVE) Urine Blood Negative (NEGATIVE) Urine Nitrite Positive (NEGATIVE) Urine Bilirubin Moderate (NEGATIVE) Urine Urobilinogen 0.2 mg/dL (0.2 - 1) Urine Leukocyte Esterase Negative (NEGATIVE) Urine RBC None /HPF (0-5) Urine WBC None /HPF (0-5) Urine Epithelial Cells Few /LPF (NONE) Urine Transitional Epithelial Cells Rare (NONE) Urine Renal Epithelial Cells Rare (NONE) Urine Bacteria Few /HPF (NONE) Urine Hyaline Casts 0-1 (0-1) Sodium Level 135 mmol/L (136-145) Potassium Level 4.7 mmol/L (3.5-5.1) Chloride Level 92 mmol/L (98-107) Carbon Dioxide Level 24 mmol/L (22-29) Anion Gap 23.7 mmol/L (8-16) Blood Urea Nitrogen 14 mg/dL (7-26) Creatinine 3.66 mg/dL (0.72-1.25) Estimat Glomerular Filtration Rate 19 ML/MIN (60-) BUN/Creatinine Ratio 4 (6-25) Glucose Level 144 mg/dL (74-118) Calcium Level 11.0 mg/dL (8.4-10.2) Total Bilirubin 1.1 mg/dL (0.2-1.2) Aspartate Amino Transf (AST/SGOT) 28 IU/L (5-34) Alanine Aminotransferase (ALT/SGPT) 20 IU/L (0-55) Alkaline Phosphatase 68 IU/L (40-150) Total Protein 10.8 g/dL (6.5-8.1) Albumin 5.4 g/dL (3.5-5.0) Globulin 5.4 g/dL (2.3-3.5) Albumin/Globulin Ratio 1.0 (0.8-2.0) Lipase 15 U/L (8-78) Urine Opiates Screen Negative (NEGATIVE) Urine Methadone Screen Negative (NEGATIVE) Urine Barbiturates Screen Negative (NEGATIVE) Urine Phencyclidine Screen Negative (NEGATIVE) Urine Amphetamines Screen Negative (NEGATIVE) Urine Methamphetamines Screen Negative (NEGATIVE) Urine Benzodiazepines Screen Negative (NEGATIVE) Urine Cocaine Screen Negative (NEGATIVE) Urine Cannabinoids Screen Negative (NEGATIVE) Lab results reviewed: Yes Imaging Imaging results reviewed: Yes Impressions IMPRESSION: Circumferential mild wall thickening of the bladder may reflect partial decompression or cystitis in the appropriate clinical setting. Mild prostatomegaly. Apparent mild wall thickening of some jejunal loops may reflect partial decompression versus nonspecific enteritis. Sigmoid colonic diverticulosis without evidence of diverticulitis. A 5 mm ground glass nodule in the left lower lobe, likely infectious or inflammatory. Signed by: Dr. 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 Assessment & Plan Assessment & Plan Final Impression: (1) Renal failure (2) Cystitis Assessment & Plan 34 M arrived to the ED with RLQ Pain -cbc, cmp, cardiac makers -UA -CT AP Depart Disposition: ADMITTED Last Vital Signs Date Time Temp Pulse Resp B/P (MAP) Pulse Ox O2 Delivery O2 Flow Rate FiO2 12/02/19 20:44 68 17 128/91 100 12/02/19 20:04 98.5 Home Meds Reported Medications Amoxicillin/Potassium Clav (AUGMENTIN 875-125 TABLET) 1 Each Tablet, 875 MG PO Q12H, #28 TAB 05/30/19 Medications in the ED Sodium Chloride 1,000 ml @ 0 mls/hr Q0M STAT IV Last administered on 12/02/19at 20:32; Admin Dose 999 MLS/HR; Start 12/02/19 at 20:13; Stop 12/02/19 at 20:14 Ketorolac Tromethamine 30 mg ONCE ONCE IV Last administered on 12/02/19at 20:32; Admin Dose 30 MG; Start 12/02/19 at 20:30; Stop 12/02/19 at 20:31 SAM AHUMADA DO December 02, 2019 21:02
[2019-12-02] MEDS ORDERED: SODIUM CHLORIDE 0.9% 1000ML 2,000 ML ONE (21:26)
[2019-12-02] MEDS ORDERED: SODIUM CHLORIDE 0.9% 1000ML 1,000 ML IV SCH ×2 (21:30)
[2019-12-02] MEDS ORDERED: DIATRIZOATE MEGL/DIATRIZOA SOD 30 ML BTL PO ONE (21:35)
[2019-12-02 21:41] LABS: CREATINE KINASE MB 2.8 ng/mL (0-5.0)
--- NOTE | 2019-12-02 23:16 | Diagnostic Imaging Report ---
EXAM: CT Abdomen and Pelvis WITHOUT contrast INDICATION: Right lower quadrant abdominal pain. COMPARISON: None. TECHNIQUE: Abdomen and pelvis were scanned utilizing a multidetector helical scanner from the lung base to the pubic symphysis without administration of IV contrast. Absence of intravenous contrast decreases sensitivity for detection of focal lesions and vascular pathology. Coronal and sagittal reformations were obtained. Routine protocol was performed. IV CONTRAST: None. ORAL CONTRAST: Gastrografin RADIATION DOSE: Total DLP: 287.9 mGy*cm Estimated effective dose: (DLP x 0.015 x size factor) mSv COMPLICATIONS: None FINDINGS: LINES and TUBES: None. LOWER THORAX: There is a 5 mm ground glass nodule in the left lower lobe on series 2, image 4. HEPATOBILIARY: No focal hepatic lesions. No biliary ductal dilation. GALLBLADDER: No radio-opaque stones or sludge. No wall thickening. SPLEEN: Atrophic. Calcified splenic granulomas. PANCREAS: No focal masses or ductal dilatation. ADRENALS: No adrenal nodules KIDNEYS/URETERS: No hydronephrosis. No cystic or solid mass lesions. No stones. GI TRACT: No evidence of bowel obstruction. Partial decompression of jejunal loops which appear mildly thick-walled.. Appendix is normal. Sigmoid colonic diverticulosis without evidence of diverticulitis. PELVIC ORGANS/BLADDER: Appears circumferentially mildly thick-walled and partially decompressed. Mildly enlarged prostate, measuring up to 4.4 cm. LYMPH NODES: No lymphadenopathy. VESSELS: Unremarkable. PERITONEUM / RETROPERITONEUM: No free air or fluid. BONES: Unremarkable. SOFT TISSUES: Tiny fat-containing umbilical hernia. IMPRESSION: Circumferential mild wall thickening of the bladder may reflect partial decompression or cystitis in the appropriate clinical setting. Mild prostatomegaly. Apparent mild wall thickening of some jejunal loops may reflect partial decompression versus nonspecific enteritis. Sigmoid colonic diverticulosis without evidence of diverticulitis. A 5 mm ground glass nodule in the left lower lobe, likely infectious or inflammatory. Signed by: Dr. Davis Mari MD on 12/02/2019 11:12 PM
[2019-12-02] MEDS ORDERED: CEFTRIAXONE SOD 1 GM/NS 50 ML 50 ML IV STA (23:44)
[2019-12-03] VITALS (8 sets, daily range): BP systolic 122–143; BP diastolic 60–100
--- OUTSIDE RECORDS SUMMARY | 2019-12-03 00:02 | XMS REPORT ---
Author Author [facility] Organization [facility] Address [address] [place] [address] Phone Unavailable Care Team Providers Care Ball Holder Name Role Phone NO, PCP PCP Unavailable Cynthia AHUMADA Attphys Unavailable ERICH MCMILLAN Attphys Unavailable ERICH MCMILLAN Admphycynthia Unavailable Problems Condition Name Condition Details Condition Category Status Onset Date Resolution Date Last Treatment Date Treating Clinician Comments Source Fever Fever Problem Active [facility] Hypokalemia Hypokalemia Problem Active [facility] Pleurisy Pleurisy Problem Active [facility] Pneumonia Pneumonia Problem Active [facility] Allergies, Adverse Reactions, Alerts This patient has no known allergies or adverse reactions. Medications Ordered Medication Name Filled Medication Name Start Date Stop Da te Current Medication? Ordering Clinician Indication Dosage Frequency Signature (SIG) Comments Components Source Amoxicillin/Potassium Clav (Augmentin 875-125 Tablet) 1 Each Tablet Amoxicillin/Potassium Clav (Augmentin 875-125 Tablet) 1 Each Tablet Yes 875 Every 12 Hours [facility] Procedures Procedure Date / Time Performed Performing Clinician Sour e X-ray of chest, two views 2019-05-29 00:00:00 CHRIS CUADRA CH I [facility] X-ray of chest, two views 2019-05-26 00:00:00 CHRIS CUADRA CH I [facility] Bronchoscopy with biopsy 2019-05-23 00:00:00 CRISTOFER THEODORE CH I [facility] X-ray of chest, two views 2019-05-20 00:00:00 CHAMP COULTER I [facility] Computed tomography of chest with contrast 2019-05-20 00:00:00 CHAMP DINERO [facility] Encounters Start Date/Time End Date/Time Encounter Type Admission Type Attendi [facility] Care Department Encounter ID Source 2019-05-20 14:01:00 2019-05-30 10:27:00 Discharged Inpatient 1 ERICH MCMILLAN [facility] [id number] [facility] Results Test Description Test Time Test Comments Results Result Comments Source CT ABDOMEN/PELVIS WO 2019-12-02 22:59:00 [facility] [address] [place] [address] Patient Name: VANDA ALTAMIRANO MR #: [id number] : 1985 Age/Sex: 34/M Req #: [id number] Adm Physician: Ordered by: SAM AHUMADA DO Report #: [id number] Location: ER Room/Bed: Procedure: [id number] CT/CT ABDOMEN/PELVIS WO Exam Date: 12/02/19 Exam Time: 0 REPORT STATUS: Signed EXAM: CT Abdomen and Pelvis WITHOUT contrast INDICATION: Right lower quadrant abdominal pain. COMPARISON: None. TECHNIQUE: Abdomen and pelvis were scanned utilizing a multidetector helical scanner from the lung base to the pubic symphysis wit hout administration of IV contrast. Absence of intravenous contrast decreases sensitivity for detection of focal lesions and vascular pathology. Coronal and sagittal reformations were obtained. Routine protocol was performed. IV CONTRAST: None. ORAL CONTRAST: Gastrografin RADIATION DOSE: Total DLP: 287.9 mGy*cm Estimated effective dose: (DLP x 0.015 x size factor) mSv COMPLICATIONS: None FINDINGS: LINES and TUBES: None. LOWER THORAX: There is a 5 mm ground glass nodule in the left lower lobe on series 2, image 4. HEPATOBILIARY: No focal hepatic lesions. No biliary ductal dilation. GALLBLADDER: No radio-opaque stones or sludge. No wall thickening. SPLEEN: Atrophic. Calcified splenic granulomas. PANCREAS: No focal masses or ductal dilatation. ADRENALS: No adrenal nodules KIDNEYS/URETERS: No hydronephrosis. No cystic or solid mass lesions. No stones. GI TRACT: No evidence of bowel obstruction. Partial decompression of jejunal loops which appear mildly thick-walled.. Appendix is normal. Sigmoid colonic diverticulosis without evidence of diverticulitis. PELVIC ORGANS/BLADDER: Appears circumferentially mildly thick-walled and partially decompressed. Mildly enlarged prostate, measuring up to 4.4 cm. LYMPH NODES: No lymphadenopathy. VESSELS: Unremarkable. PERITONEUM / RETROPERITONEUM: No free air or fluid. BONES: Unremarkable. SOFT TISSUES: Tiny fat- containing umbilical hernia. IMPRESSION: Circumferential mild wall thickening of the bladder may reflect partial decompression or cystitis in the appropriate clinical setting. Mild prostatomegaly. Apparent mild wall thickening of some jejunal loops may reflect partial decompression versus nonspecific enteritis. Sigmoid colonic diverticulosis without evidence of diverticulitis. A 5 mm ground glass nodule in the left lower lobe, likely infectious or inflammatory. Signed by: Dr. Pantera Bonds MD on 12/02/2019 11:12 PM Dictated By: PANTERA BONDS MD 11 Transcribed By: PATRICK on 12/02/192311 COPY TO: SAM AHUMADA DO White Blood Count 2019-05-30 05:57:00 Test Item White Blood Count (test code = 6690-2) 12.15 4.8-10.8 [facility] Fovck0757-53-71 05:57:00* Test Item Value Reference Range Interpretation Comments Red Blood Count (test code = 789-8) 4.17 4.3-5.7 [facility]Hemoglobin2019-11-15 05:57:00* Test Item Value Reference Range Interpretation Comments Hemoglobin (test code = 46217-4) 12.5 14.0-18.0 [facility]Hematocrit2019-11-15 05:57:00* Test Item Value Reference Range Interpretation Comments Hematocrit (test code = 4544-3) 36.9 38.2-49.6 [facility] SouthMean Corpuscular Iuerqz7430-12-90 05:57:00* Test Item Value Reference Range Interpretation Comments Mean Corpuscular Volume (test code = 787-2) 88.5 81-99 [facility] SouthMean Corpuscular Yelmyncayw6042-59-54 05:57:00* Test Item Value Reference Range Interpretation Comments Mean Corpuscular Hemoglobin (test code = 785-6) 30.0 28-32 [facility] SouthMean Corpuscular Hemoglobin Concent 2019-05-30 05:57:00* Test Item Value Reference Range Interpretation Comments Mean Corpuscular Hemoglobin Concent (test code = 786-4) 33.9 31-35 [facility] SouthRed Cell Distribution Hlnvq4746-60-60 05:57:00* Test Item Value Reference Range Interpretation Comments Red Cell Distribution Width (test code = 35999-0) 14.4 11.7 -14.4 [facility] SouthPlatelet Rdmid7697-43-45 05:57:00* Test Item Value Reference Range Interpretation Comments Platelet Count (test code = 777-3) 552 140-360 [facility] SouthNeutrophils (%) (Auto)2019-05-30 05:57:00 * Test Item Value Reference Range Interpretation Comments Neutrophils (%) (Auto) (test code = 07209-9) 77.4 38.7-80.0 [facility] SouthLymphocytes (%) (Auto)2019-05-30 05:57:00 * Test Item Value Reference Range Interpretation Comments Lymphocytes (%) (Auto) (test code = 736-9) 12.2 18.0-39.1 [facility] SouthMonocytes (%) (Auto)2019-05-30 05:57:00* Test Item Value Reference Range Interpretation Comments Monocytes (%) (Auto) (test code = 5905-5) 7.5 4.4-11.3 [facility] SouthEosinophils (%) (Auto)2019-05-30 05:57:00 * Test Item Value Reference Range Interpretation Comments Eosinophils (%) (Auto) (test code = 713-8) 0.6 0.0-6.0 [facility] SouthBasophils (%) (Auto)2019-05-30 05:57:00* Test Item Value Reference Range Interpretation Comments Basophils (%) (Auto) (test code = 706-2) 0.7 0.0-1.0 [facility] SouthIM GRANULOCYTES %2019-05-30 05:57:00* Test Item Value Reference Range Interpretation Comments IM GRANULOCYTES % (test code = IM GRANULOCYTES %) 1.6 0.0- 1.0 [facility] SouthNeutrophils # (Auto)2019-05-30 05:57:00* Test Item Value Reference Range Interpretation Comments Neutrophils # (Auto) (test code = 751-8) 9.4 2.1-6.9 [facility] SouthLymphocytes # (Auto)2019-05-30 05:57:00* Test Item Value Reference Range Interpretation Comments Lymphocytes # (Auto) (test code = 53131-3) 1.5 1.0-3.2 [facility] SouthMonocytes # (Auto)2019-05-30 05:57:00* Test Item Value Reference Range Interpretation Comments Monocytes # (Auto) (test code = 742-7) 0.9 0.2-0.8 [facility] SouthEosinophils # (Auto)2019-05-30 05:57:00* Test Item Value Reference Range Interpretation Comments Eosinophils # (Auto) (test code = 711-2) 0.1 0.0-0.4 [facility] SouthBasophils # (Auto)2019-05-30 05:57:00* Test Item Value Reference Range Interpretation Comments Basophils # (Auto) (test code = 704-7) 0.1 0.0-0.1 [facility] SouthAbsolute Immature Granulocyte (auto 2019-05-30 05:57:00* Test Item Value Reference Range Interpretation Comments Absolute Immature Granulocyte (auto (annabelle t code = Absolute Immature Granulocyte (auto) 0.19 0-0.1 [facility] SouthCHEST 2 WTXZB3207-21-01 10:15:00 [facility] [address] [place] [address] Patient Name: VANDA ALTAMIRANO MR #: [id number] : 1985 Age/Sex: 34/M Req #: [id number] Adm Physician: ERICH MCMILLAN MD Ordered by: CHRIS CUADRA MD Report #: [id number] Location: [facility]/SURG3 Room/Bed: [facility] Procedure: 6509-1301 D X/CHEST 2 VIEWS Exam Date: 05/29/19 [...] 1019 COPY TO: CHRIS CUADRA MD Blood Qmdlatq0930-67-37 09:09:00* Test Item Value Reference Range Interpretation Comments Blood Culture (test code = 52341240) NO GROWTH AFTER 72 HOURS [facility] SouthTB Test (T-Spot)2019-05-28 16:15:00* Test Item Value Reference Range Interpretation Comments TB Test (T-Spot) (test code = TB Test (T-Spot)) 0 T-SPOT.TB Negative Normal Value: NegativePanel A Spot Count (Corrected for N egative Control) 0Panel B Spot Count (Corrected for Negative Control) 0Negavtive Control PassedPositive Conrol PassedCHI [facility] Differential Total Cells Khrsctx7259-28-16 07:53:00* Test Item Value Reference Range Interpretation Comments Differential Total Cells Counted (test code = Differen tial Total Cells Counted) 100 [facility] SouthNeutrophils % (Manual)2019-05-28 07:53:00 * Test Item Value Reference Range Interpretation Comments Neutrophils % (Manual) (test code = 13304-7) 77 40-74 [facility] SouthBand Neutrophils %2019-05-28 07:53:00* Test Item Value Reference Range Interpretation Comments Band Neutrophils % (test code = 764-1) 2 [facility] SouthLymphocytes % (Manual)2019-05-28 07:53:00 * Test Item Value Reference Range Interpretation Comments Lymphocytes % (Manual) (test code = 737-7) 12 19-48 [facility] SouthMonocytes % (Manual)2019-05-28 07:53:00* Test Item Value Reference Range Interpretation Comments Monocytes % (Manual) (test code = 744-3) 8 3.4-9.0 [facility] SouthEosinophils % (Manual)2019-05-28 07:53:00 * Test Item Value Reference Range Interpretation Comments Eosinophils % (Manual) (test code = 714-6) 1 0-7 [facility] SouthPlatelet Kypmdxyf1366-05-92 07:53:00* Test Item Value Reference Range Interpretation Comments Platelet Estimate (test code = 40291-1) SLIGHTLY INCREASED [facility] SouthPlatelet Morphology Qwsyxic5059-25-43 07:53:00* Test Item Value Reference Range Interpretation Comments Platelet Morphology Comment (test code = 91965-5) FEW LARGE [facility] SouthPoikilocytosis2019-11-13 07:53:00* Test Item Value Reference Range Interpretation Comments Poikilocytosis (test code = 779-9) SLIGHT [facility] SouthAnisocytosis2019-11-13 07:53:00* Test Item Value Reference Range Interpretation Comments Anisocytosis (test code = 702-1) SLIGHT [facility] SouthMicrocytosis2019-11-13 07:53:00* Test Item Value Reference Range Interpretation Comments Microcytosis (test code = 741-9) SLIGHT [facility] SouthMacrocytosis2019-11-13 07:53:00* Test Item Value Reference Range Interpretation Comments Macrocytosis (test code = 738-5) SLIGHT [facility] SouthOvalocytes2019-11-13 07:53:00* Test Item Value Reference Range Interpretation Comments Ovalocytes (test code = 774-0) FEW [facility] SouthRed Cell Morphology Reddacd8993-06-29 07:53:00* Test Item Value Reference Range Interpretation Comments Red Cell Morphology Comment (test code = 6742-1) ABNORMAL [facility] Ujqfu3338-90-92 06:20:00* Test Item Value Reference Range Interpretation Comments Sodium Level (test code = 2951-2) 131 136-145 [facility] SouthPotassium Mpxvz0271-43-27 06:20:00* Test Item Value Reference Range Interpretation Comments Potassium Level (test code = 2823-3) 4.0 3.5-5.1 [facility] SouthChloride Szpmw5020-53-29 06:20:00* Test Item Value Reference Range Interpretation Comments Chloride Level (test code = 2075-0) 100 98-107 [facility] SouthCarbon Dioxide Sghec5589-78-30 06:20:00* Test Item Value Reference Range Interpretation Comments Carbon Dioxide Level (test code = 2028-9) 23 22-29 [facility] SouthAnion Frs9346-90-20 06:20:00* Test Item Value Reference Range Interpretation Comments Anion Gap (test code = 93439-0) 12.0 8-16 [facility] SouthBlood Urea Igeohdzh5280-60-23 06:20:00* Test Item Value Reference Range Interpretation Comments Blood Urea Nitrogen (test code = 3094-0) 8 7-26 [facility] SouthCreatinine2019-11-13 06:20:00* Test Item Value Reference Range Interpretation Comments Creatinine (test code = 2160-0) 0.78 0.72-1.25 [facility] SouthBUN/Creatinine Yqasm5463-59-98 06:20:00* Test Item Value Reference Range Interpretation Comments BUN/Creatinine Ratio (test code = 3097-3) 10 6-25 [facility] SouthEstimat Glomerular Filtration Rate 2019-05-28 06:20:00* Test Item Value Reference Range Interpretation Comments Estimat Glomerular Filtration Rate (test code = 542401248) > 60 >60 Ranges were taken from the National Kidney Disease Education Program and the Lupis ecu healthal [employer] literature.Reference ranges:60 or greater: Rkaixt97-64 ( for 3 consecutive months): Chronic kidney disease 15 or less: Kidney failureShannon Medical Center SouthGlucose Kovth9173-37-19 06:20:00* Test Item Value Reference Range Interpretation Comments Glucose Level (test code = WEZ6893) 100 74-118 [facility] SouthCalcium Zvkml1139-34-10 06:20:00* Test Item Value Reference Range Interpretation Comments Calcium Level (test code = 20133-4) 9.5 8.4-10.2 [facility] SouthTotal Mrmqnhbtv4644-91-62 06:20:00* Test Item Value Reference Range Interpretation Comments Total Bilirubin (test code = 1975-2) 0.5 0.2-1.2 [facility] SouthAspartate Amino Transf (AST/SGOT) 2019-05-28 06:20:00* Test Item Value Reference Range Interpretation Comments Aspartate Amino Transf (AST/SGOT) (test code = Aspartate Amino Transf (AST/SGOT)) 27 5-34 [facility] SouthAlanine Aminotransferase (ALT/SGPT) 2019-05-28 06:20:00* Test Item Value Reference Range Interpretation Comments Alanine Aminotransferase (ALT/SGPT) (test code = 1742-6) 56 0-55 [facility] SouthTotal Fkkkhkh2368-27-01 06:20:00* Test Item Value Reference Range Interpretation Comments Total Protein (test code = 2885-2) 8.1 6.5-8.1 [facility] SouthAlbumin2019-11-13 06:20:00* Test Item Value Reference Range Interpretation Comments Albumin (test code = 1751-7) 2.4 3.5-5.0 [facility] SouthGlobulin2019-11-13 06:20:00* Test Item Value Reference Range Interpretation Comments Globulin (test code = 97489-7) 5.7 2.3-3.5 [facility] SouthAlbumin/Globulin Zyfdw7212-64-17 06:20:00 * Test Item Value Reference Range Interpretation Comments Albumin/Globulin Ratio (test code = 1759-0) 0.4 0.8-2.0 [facility] SouthAlkaline Tnseepwhtco3770-30-12 06:20:00* Test Item Value Reference Range Interpretation Comments Alkaline Phosphatase (test code = 6768-6) 195 40-150 [facility] SouthCHEST 2 DUDLD6946-53-71 12:22:00 [facility] [address] [place] [address] Patient Name: VANDA ALTAMIRANO MR #: [id number] : 1985 Age/Sex: 34/M Req #: [id number] Adm Physician: ERICH MCMILLAN MD Ordered by: CHRIS CUADRA MD Report #: [id number] Location: MED/SURG3 Room/Bed: [facility] Procedure: 5322-8610 D X/CHEST 2 VIEWS Exam Date: Exam [...] 1226 COPY TO: CHRIS CUADRA MD Reactive Etaqilhwbey0389-51-52 07:32:00* Test Item Value Reference Range Interpretation Comments Reactive Lymphocytes (test code = 49765-3) 4 [facility] Hospitaltomatocytes2019-11-11 07:32:00* Test Item Value Reference Range Interpretation Comments Stomatocytes (test code = 72506-8) SLIGHT [facility] SouthCHEST SINGLE (PORTABLE)2019-05-23 13:00:00 [place] [address] Patient Name: VANDA ALTAMIRANO MR #: [id number] : 1985 Age/Sex: 34/M Req #: [id number] Adm Physician: ERICH MCMILLAN MD Ordered by: CRISTOFER THEODORE MD Report #: [id number] Location: MED/SURG3 Room/Bed: 299-1 Procedure: 1108-00 31 DX/CHEST SINGLE (PORTABLE) Exam [...] 1303 COPY TO: CRISTOFER THEODORE MD Magnesium Beurz5182-79-49 06:59:00* Test Item Value Reference Range Interpretation Comments Magnesium Level (test code = 31144-5) 1.7 1.3-2.1 [facility] SouthHIV (1&2) Qrixalru1284-55-10 18:28:00* Test Item Value Reference Range Interpretation Comments HIV (1&2) Antibody (test code = 76354-2) NON-REACTIVE NONREACTIVE [facility] P24 Vjisqsi1262-36-60 18:28:00* Test Item Value Reference Range Interpretation Comments HIV P24 Antigen (test code = HIV P24 Antigen) NON-REACTIVE NONREACT DUSTIN [facility] SouthNucleated Red Blood Xnkse9509-79-84 07:49:00* Test Item Value Reference Range Interpretation Comments Nucleated Red Blood Cells (test code = 95579-9) 1 [facility] SouthCreatine Kinase VT7000-01-62 07:17:00* Test Item Value Reference Range Interpretation Comments Creatine Kinase MB (test code = 34018-2) 0.30 0-5.0 [facility] SouthTroponin V7585-41-79 07:17:00* Test Item Value Reference Range Interpretation Comments Troponin I (test code = QRR8912) < 0.001 0-0.300 [facility] SouthCreatine Osxokj5730-01-54 07:09:00* Test Item Value Reference Range Interpretation Comments Creatine Kinase (test code = 2157-6) 33 30-200 [facility] SouthCHEST SINGLE (PORTABLE)2019-05-21 05:25:00 [place] [address] Patient Name: VANDA ALTAMIRANO MR #: [id number] : 1985 Age/Sex: 34/M Req #: [id number] Adm Physician: ERICH MCMILLAN MD Ordered by: MARYLIN PATHAK, CHAMP PATHAK Report #: [id number] Location: MED/SURG3 Room/Bed: [facility] Procedure: 1106- 0005 DX/CHEST SINGLE (PORTABLE) Exam [...] By: PATRICK on 05/21/19526 C OPY TO: CHAMP COULTER CT CHEST A5594-77-75 17:31:00 [place] [address] Patient Name: VANDA ALTAMIRANO MR #: [id number] : 1985 Age/Sex: 34/M Req #: [id number] Adm Physician: ERICH MCMILLAN MD Ordered by: CHAMP COULTER MD, MD Report #: [id number] Location: [facility] Room/Bed: [place] [address] Procedure: 1105- 0033 CT/CT CHEST W Exam Date: Exam Time: REPORT STATUS: Signed CT chest with enhan cement CPT code: 23483 INDICATION: Fever, cough TECHNIQUE: 5 mm collimation [...] WBC (test code = 5821-4) NONE 0-5 [facility] HospitalUrine RIN3702-47-06 16:13:00* Test Item Value Reference Range Interpretation Comments Urine RBC (test code = 18547-2) 0-5 0-5 [facility] SouthUrine Jiizglqu9286-53-12 16:13:00* Test Item Value Reference Range Interpretation Comments Urine Bacteria (test code = 54890-2) MODERATE NONE [facility] SouthUrine Epithelial Hbswb2790-04-07 16:13:00 * Test Item Value Reference Range Interpretation Comments Urine Epithelial Cells (test code = 08768-1) NONE NONE [facility] SouthUrine Nwnoq2828-61-80 16:03:00* Test Item Value Reference Range Interpretation Comments Urine Color (test code = 5778-6) YELLOW YELLOW [facility] Yqqbqlr0463-86-97 16:03:00* Test Item Value Reference Range Interpretation Comments Urine Clarity (test code = 68763-6) SL CLOUDY CLEAR [facility] Specific Ukqexbo6193-18-04 16:03:00 * Test Item Value Reference Range Interpretation Comments Urine Specific [place] (test code = 5811-5) 1.015 1.010-1.02 5 [facility] SouthUrine rS6722-04-19 16:03:00* Test Item Value Reference Range Interpretation Comments Urine pH (test code = 86570-6) 6 5-7 [facility] SouthU[facility] Leukocyte Sfatvjdi5542-40-76 16:03:00* Test Item Value Reference Range Interpretation Comments Urine Leukocyte Esterase (test code = 80044-8) NEGATIVE NEGATIV E [facility] SouthUrine Ruogclf6838-14-52 16:03:00* Test Item Value Reference Range Interpretation Comments Urine Nitrite (test code = 88759-3) NEGATIVE NEGATIVE [facility] SouthUrine Vkgrxmb4713-15-34 16:03:00* Test Item Value Reference Range Interpretation Comments Urine Protein (test code = 31919-5) 2+ NEGATIVE [facility] SouthUrine Glucose (UA)2019-05-20 16:03:00* Test Item Value Reference Range Interpretation Comments Urine Glucose (UA) (test code = 67853-7) NEGATIVE NEGATIVE [facility] SouthUrine Geofntx4272-07-73 16:03:00* Test Item Value Reference Range Interpretation Comments Urine Ketones (test code = 30608-8) TRACE NEGATIVE [facility] SouthU[facility] Jclxjmqfqtky9957-62-89 16:03:00* Test Item Value Reference Range Interpretation Comments Urine Urobilinogen (test code = 03191-3) 1 0.2-1 [facility] HospitalUrine Mviktdylg5868-80-92 16:03:00* Test Item Value Reference Range Interpretation Comments Urine Bilirubin (test code = 1977-8) NEGATIVE NEGATIVE [facility] HospitalUrine Whdio9604-07-14 16:03:00* Test Item Value Reference Range Interpretation Comments Urine Blood (test code = 28672-0) 1+ NEGATIVE [facility] SouthCHEST 2 WMQGL8232-75-86 13:11:00 [facility] [address] [place] [address] Patient Name: VANDA ALTAMIRANO MR #: [id number] : 1985 Age/Sex: 34/M Req #: [id number] Adm Physician: Ordered by: MARYLIN PATHAK, CHAMP PATHAK Report #: [id number] Location: ER Room/Bed: Procedure: 1105- 0051 DX/CHEST 2 VIEWS Exam Date: Exam Time: REPORT STATUS: Signed EXAMINATION: EST 2 VIEWS INDICATION: Chest pain, shortness [...] 1:13 PM Dictated By: GERTRUDE LA[place] MD 1313 Transcribed By: PATRICK on 05/20/19 1313 COPY TO: CHAMP COULTER Influenza Virus Types A,B Ehvhgxv4718-15-48 12:54:00* Test Item Value Reference Range Interpretation Comments Influenza Virus Types A,B Antigen (test code = 03456-5) NEGATIVE NEGATIVE [facility] SouthGroup A Streptococcus Qsembf0662-49-98 12:48:00* Test Item Value Reference Range Interpretation Comments Group A Streptococcus Screen (test code = 71043-2) POSITIVE NEG ATIVE [facility]
--- NOTE | 2019-12-03 02:01 | NUR ---
Pt admitted to room 213 via WC from home. Patient alert and orient to name, hospital, situation, and diagnosis: Cystitis, Renal Failure. Pt skin warm and dry. Patient denies pain at this time. Lungs CTA. cap refill <3 secs. Last BM 12/01. Denies dysuria, c/o dark urine. pp +4. Pt oriented to room, call light within reach. Bed low and locked.
--- NOTE | 2019-12-03 06:29 | NUR ---
Filled in patient visitor form. Pt denies any complaints at this time. No acute distress noted.
--- NOTE | 2019-12-03 07:10 | NUR ---
RCD PT AT BED PT IS ALERT AND ORIENTED RESTING ON BED IV PATENT BED LOW AND LOCKED CALL LIGHT IN REACH
[2019-12-03] MEDS: SODIUM CHLORIDE 0.9% 1000ML 1,000 ML IV SCH ×2 (14:45→21:40)
--- NOTE | 2019-12-03 18:52 | NUR ---
PT RESTING ON BED BED SIDE REPORT GIVEN TO ONCOMING NURSE
[2019-12-04] VITALS (7 sets, daily range): BP systolic 117–134; BP diastolic 70–96
[2019-12-04] MEDS ORDERED: CEFTRIAXONE SOD 1 GM/NS 50 ML 50 ML IV SCH (02:00)
[2019-12-04] MEDS: SODIUM CHLORIDE 0.9% 1000ML 1,000 ML IV SCH (03:24)
[2019-12-04 05:25] LABS: BASOPHILS % 0.4 % (0.0-1.0); EOSINOPHILS # (AUTO) 0.1 (0.0-0.4); EOSINOPHILS % 1.3 % (0.0-6.0); HEMOGLOBIN 12.6 g/dL (14.0-18.0); LYMPHOCYTES # (AUTO) 1.8 (1.0-3.2); MEAN CORPUSCULAR HEMOGLOBIN 29.4 pg (28-32); MEAN CORPUSCULAR HGB CONC 33.2 g/dL (31-35); MEAN CORPUSCULAR VOLUME 88.8 fL (81-99); MONOCYTES # (AUTO) 0.6 (0.2-0.8); NEUTROPHILS # (AUTO) 4.2 (2.1-6.9); PLATELET COUNT 181 x10e3/uL (140-360); RED BLOOD COUNT 4.28 x10e6/uL (4.3-5.7); RED CELL DISTRIBUTION WIDTH 13.7 % (11.7-14.4)
[2019-12-04 05:48] LABS: BLOOD UREA NITROGEN 17 mg/dL (7-26); BUN/CREATININE RATIO 13 (6-25); CALCIUM 8.4 mg/dL (8.4-10.2); CARBON DIOXIDE 24 mmol/L (22-29); CHLORIDE 104 mmol/L (98-107); CREATINE KINASE 210 IU/L (30-200); CREATININE, SERUM 1.34 mg/dL (0.72-1.25); EST GLOMERULAR FILTRATION RATE > 60 ML/MIN (60-); GLUCOSE 91 mg/dL (74-118); SODIUM 138 mmol/L (136-145)
--- NOTE | 2019-12-04 06:40 | NUR ---
BSSR GIVEN TO ONCOMING SHIFT VERBALLY, NO DISTRESS NOTED, CALL LIGHT WITHIN REACH UPDATED WITH CURRENT LABS AND PLAN OF CARE
--- NOTE | 2019-12-04 07:12 | NUR ---
RCD PT AT BED PT IS ALERT AND ORIENTED RESTING ON BED IV PATENT BED LOW AND LOCKED CALL LIGHT IN REACH
--- NOTE | 2019-12-04 12:32 | NUR ---
PT WENT HOME IN SAFE CONDITION WITH HER FRIEND
== END 2019-12-04 12:32 | disposition home or self-care (01) | DRG 683 ==
LOC: ER 20:00 → ERHOLD 23:51 → MED/SURG2 12-03 01:17
DX: N17.9 Acute kidney failure, unspecified (principal); M62.82 Rhabdomyolysis; T67.5XXA Heat exhaustion, unspecified, initial encounter; R10.31 Right lower quadrant pain; N30.90 Cystitis, unspecified without hematuria
CPT/HCPCS: 36415; 74176; 80048; 80053; 80307; 81001; 82550; 82553; 83690; 84484; 85025; 87635; 93005; 96374; 99284; J0696; J1885; J7030

== ENCOUNTER 2021-01-15 02:42 | Emergency (ER) | payer SELFPAY ==
[~2021-01-15] VITALS: Ht 167.6 cm; Wt 78.0 kg
[2021-01-15] MEDS ORDERED: KETOROLAC TROMETHAMINE 30 MG/ML VIAL IV STA (02:59)
[2021-01-15] MEDS ORDERED: DIAZEPAM INJ 5 MG/ML 2 ML IV ONE (03:00)
[2021-01-15 03:12] LABS: BASOPHILS % 0.6 % (0.0-1.0); EOSINOPHILS % 0.6 % (0.0-6.0); HEMATOCRIT 42.3 % (38.2-49.6); HEMOGLOBIN 13.9 g/dL (14.0-18.0); LYMPHOCYTES # (AUTO) 1.7 (1.0-3.2); LYMPHOCYTES % 25.4 % (18.0-39.1); MEAN CORPUSCULAR HGB CONC 32.9 g/dL (31-35); MEAN CORPUSCULAR VOLUME 88.1 fL (81-99); MONOCYTES # (AUTO) 0.5 (0.2-0.8); MONOCYTES % 7.5 % (4.4-11.3); NEUTROPHILS # (AUTO) 4.4 (2.1-6.9); NEUTROPHILS % 65.7 % (38.7-80.0); PLATELET COUNT 198 x10e3/uL (140-360); RED CELL DISTRIBUTION WIDTH 14.3 % (11.7-14.4)
[2021-01-15 03:31] LABS: ALANINE AMINOTRANSFERASE 20 IU/L (0-55); ALBUMIN 4.2 g/dL (3.5-5.0); ALKALINE PHOSPHATASE 57 IU/L (40-150); ANION GAP 16.1 mmol/L (8-16); BLOOD UREA NITROGEN 17 mg/dL (7-26); BUN/CREATININE RATIO 15 (6-25); CALCIUM 8.7 mg/dL (8.4-10.2); CARBON DIOXIDE 19 mmol/L (22-29); CHLORIDE 108 mmol/L (98-107); CREATINE KINASE 1356 IU/L (30-200); CREATININE, SERUM 1.11 mg/dL (0.72-1.25); EST GLOMERULAR FILTRATION RATE 75 ML/MIN (60-); GLUCOSE 103 mg/dL (74-118); POTASSIUM 3.1 mmol/L (3.5-5.1); SODIUM 140 mmol/L (136-145)
[2021-01-15] MEDS ORDERED: SODIUM CHLORIDE 0.9% 1000ML 1,000 ML IV STA ×3 (04:24)
[2021-01-15] MEDS ORDERED: PENICILLIN G BENZATHINE LA 1.2 MU TBX ONE (04:43)
[2021-01-15 06:25] LABS: AMPHETAMINES SCREEN,URINE NEGATIVE (NEGATIVE); BENZODIAZEPINES SCREEN,URINE NEGATIVE (NEGATIVE); PHENCYCLIDINE SCREEN,URINE NEGATIVE (NEGATIVE)
[2021-01-15] MEDS ORDERED: SODIUM CHLORIDE 0.9% 50ML 50 ML ONE (06:29)
[2021-01-15] MEDS ORDERED: IOPAMIDOL 370 MG/ML 200 ML INFUS..BTL INJ ONE (06:29)
[2021-01-15 07:11] LABS: CREATINE KINASE MB 6.4 ng/mL (0-5.0)
[2021-01-15] MEDS ORDERED: HYDROCODONE/APAP 10MG-325MG TAB PO ONE (10:00)
== END 2021-01-15 09:57 | disposition home or self-care (01) ==
LOC: ER 02:55
DX: R07.89 Other chest pain (principal); J18.9 Pneumonia, unspecified organism
CPT/HCPCS: 36415; 71045; 71260; 80053; 80307; 80320; 82550; 82553; 83735; 84484; 85025; 93005; 99284; J0561; J7030; Q9967